=== PATIENT | female | born 1940 | race Caucasian/White ===

== ENCOUNTER 2024-12-30 14:19 | Emergency (ER) | payer MEDICARE, OTHER, SELFPAY ==
--- OUTSIDE RECORDS SUMMARY | 2024-11-08 10:40 | XMS_ITS | Encounter Summary ---
Author Organization [place] [address] Care Team Providers Care Movie Critic Name Role Phone Lilly Zimmerman MD, Harold Primary Care Provider + Encounter Details Date Type Department Care Team (Late st Contact Info) Description 11/08/2024 10:40 AM EDT Office Visit Structural Hrt/Valve [address] [facility] [address] [place] [address] Alexandria Kunz, MADDIE [address] [place] [address] S/P TAVR (transcatheter aortic valve replacement) (Primary Dx); Coronary artery disease of [place] artery of [place] heart with stable angina pectoris; Primary hypertension Social History Tobacco Use Types Packs/Day Years Used Date Smoking Tobacco: Never Smokeless Tobacco: Never Tobacco Cessation:Counseling Given: Not Answered Alcohol Use Standard Drinks/Week Comments Never 0 (1 standard drink = 0.6 oz pur e alcohol) [facility] Utilities Answer Date Recorded In the past 12 months has [employer] electric, gas, oil, or water company threatened to shut off services in your home? No 10/26/2024 Overall Financial Resource Strain (CARDIA) Answe r Date Recorded How hard is it for you to pa y for the very basics like food, housing, medical care, and heating? Not very hard 10/26/2024 PHQ-2 Answer Date Recorded PHQ-2 Total Score 0 10/26/2024 [facility] [place] [facility] - Occupational Stress Questionnaire Answer Date Recorded Do you feel stress - tense, restless, nervous, or anxious, or unable to sleep at night because your mind is troubled all the time - these days? Not at all 10/26/2024 Exercise Vital Sign Answer Date Recorde d On average, how many days pe r week do you engage in moderate to strenuous exercise (like a brisk walk)? 3 days 10/26/2024 On average, how many minutes do you engage in exercise at this level? 10 min 10/26/2024 Hunger Vital Sign Answer Date Recorded Within the past 12 months, y ou worried that your food would run out before you got the money to buy more. Never true 10/27/19 25 Within the past 12 months, t he food you bought just didn't last and you didn't have money to get more. Never true 10/26/2024 [facility] IP Transportation Answer D ate Recorded In the past 12 months, has l ack of reliable transportation kept you from medical appointments, meetings, work or from getting things needed for daily living? No 10/26/2024 Comments No Sex and Gender Information Value Date Recorded Sex Assigned at Not on file Legal Sex Female 5:32 AM EDT Gender Identity Not on file Sexual Orientation Not on file documented as of this encounter Last Filed Vital Signs Vital Sign Reading Time Taken Comments Blood Pressure 168/54 11/08/2024 10:35 AM EDT Pulse 96 11/08/2024 10:35 AM EDT Temperature - - Respiratory Rate - - Oxygen Saturation 95% 11/08/2024 10:35 AM EDT Inhaled Oxygen Concentration - - Weight 84.6 kg (186 lb 6.4 oz) 11/08/2024 10:35 AM EDT Height - - Body Mass Index 30.09 10/26/2024 6:21 AM EDT documented in this encounter Progress Notes * Alexandria Kunz APRN - 11/08/2024 10:40 AM EDT [facility] Heart- TAVR Follow Up Primary Skein Dyer - Dr. Vincent HPI: Mindy Chandler is a 84 y.o. female who presents to [facility] following a Transcatheter Aortic Valve Replacement. She has a past medical history significant for Severe (s/p TAVR), HTN, CAD (s/p PCI). On 10/26/24, she underwent a Transfemoral Transcatheter Aortic Valve Replacement using a 23 mm S3 Valve. The procedure went well with out any apparent complications. Post operative echocardiogram showed a well-seated aortic valve. Today she presents for a 2 week post TAVR evaluation. The patient states she is doing well and has no concerns or complaints at this time. She reports that she is doing well. She is eager to go home,she states that she has been staying with her daughter. She is on aspirin and brilinta due to anaphylactic allergy to plavix. Assessment and Plan: Status-post Transcatheter Aortic Valve Replacement. The patient is doing well and has no concerns at this time. NHYA class II. I have encouraged her to continue aspirin lifelong and plavix for 3 months uninterrupted. Informed patient she will require antibiotics prior to dental work. Follow-up for 30 day post TAVR visit with an echocardiogram. Patient lives about hour [place] a half away and will be unable to make cardiac rehab. HTN - stable - SBP elevated 168/54 HLD - continue atorvastatin - s/p PCI Follow-up in the Valve Clinic for 30 day with repeat Cardiac ECHO. Follow-up appoint with as an outpatient in their office within the next 3-4 months. Thank you for the opportunity to assist in the care of this patient, please feel free to contact meif I can be of any assistance. Alexandria Kunz, MADDIE Structural Heart Vitals: 11/08/24 1035 BP: 175/54 Pulse: 96 SpO2: 95% Current Outpatient Medications on File Prior to Visit Medication Sig Dispense Refill acetaminophen 325 mg Oral Tab Take 2 Tablets by mouth every 4 hours as needed for Pain. amitriptyline (ELAVIL) 100 mg Oral Tablet Take 150 mg by mouth nightly. amLODIPine (NORVASC) 5 mg Oral Tablet Take 1 Tablet by mouth daily. aspirin 81 mg Oral Tablet, Chewable Take 1 tablet every day by oral route as directed. atorvastatin (LIPITOR) 20 mg Oral Tablet Take 1 Tablet by mouth nightly. 90 Tablet 1 Cholecalciferol, Vitamin D3, 50 mcg (2,000 unit) Oral Capsule Take 1 Capsule by mouth daily. doxazosin (CARDURA) 1 mg Oral Tablet Take 1 Tablet by mouth daily. 90 Tablet 2 esomeprazole (NEXIUM) 40 mg Oral Capsule, Delayed Release(E.C.) Take 1 capsule every day by oral route before meals for 90 days. fenofibrate (TRICOR) 48 mg Oral Tablet Take 1 Tablet by mouth daily. 90 Tablet 1 fluticasone propionate (FLONASE) 50 mcg/actuation Nasl [place], Suspension SPRAY 2 SPRAYS ONCE A DAY BY INTRANASAL ROUTE. fUROsemide (LASIX) 20 mg Oral Tablet Take 1 tablet every day by oral route in the morning for 90 days, for swelling. gabapentin (NEURONTIN) 100 mg Oral Capsule Take 2 capsules 3 times a day by oral route for 30 days. hydroCHLOROthiazide (MICROZIDE) 12.5 mg Oral Capsule Take 1 Capsule by mouth daily. lisinopriL (PRINIVIL;ZESTRIL) 20 mg Oral Tablet tablet Take 1 tablet every day by oral route. (Patient not taking: Reported on 10/26/2024) ticagrelor (BRILINTA) 90 mg Oral Tablet Take 1 Tablet by mouth 2 times daily. 60 Tablet 5 VITAMIN D 1,250 mcg (50,000 unit) Oral Capsule Take 50,000 Units by mouth once a week. (Patient nottaking: Reported on 10/26/2024) No current facility-administered medications on file prior to visit. Review of Systems A comprehensive review of systems was negative. Exam: Physical Exam Constitutional: Appearance: Normal appearance. She is obese. HENT: Head: Normocephalic and atraumatic. Cardiovascular: Rate and Rhythm: Normal rate and regular rhythm. Heart sounds: Murmur heard. No friction rub. No gallop. Musculoskeletal: Right lower leg: Edema present. Left lower leg: Edema present. Neurological: Mental Status: She is alert. Psychiatric: Mood and Affect: Mood normal. Access site: CDI, well healed CATH :No results found. ECHO :EC ECHOCARDIOGRAM LIMITED Result Date: 10/27/2024 Conclusions * Left ventricular chamber dimension is decreased. * Left ventricular function is normal with an estimated ejection fraction of 60-65%. * Right atrial chamber dimension is visually normal. * There is moderate mitral valve stenosis with a peak velocity of 214 cm/s and a mean gradient of 7 mmHg. EC ECHOCARDIOGRAM 2D M MODE COMPLETE W CONTRAST Result Date: 10/27/2024 Conclusions * Left ventricular chamber dimension is decreased. * Left ventricular function is hyperdynamic with an estimated ejection fraction of 65- 70%. * There is severely increased left ventricular wall thickness. * Left ventricular segmental wall motion is normal. * The left ventricular diastolic function is consistent with grade II diastolic dysfunction (elevated left atrial pressure). * Right ventricular systolic function is normal. * Estimated pulmonary artery systolic pressure is 47 mmHg. * Left atrial chamber dimension is moderately enlarged. * There is moderate mitral valve stenosis. * There is a 23mm TAVR present in the aortic position. * The mean gradient across the prosthetic aortic valve is 10 mmHg, which is within normal limits. * There is no transvalvular regurgitation of the prosthetic aortic valve. * There is no paravalvular regurgitation of the prosthetic aortic valve. STRESS :No results found. documented in this encounter Plan of Treatment Upcoming Encounters Date Type Department Care Team (Late st Contact Info) Description 03/29/2025 2:30 PM EDT Office Visit [facility] [address] [place] [id number] Priscilla Mejía APRN [address] [place] [address] 11/06/2025 11:45 AM EDT Appointment [facility] [address] [place] [address] [address] [place] [address] Charlotte Patel MD [address] [place] [address] 11/09/2025 11:00 AM EDT Office Visit Structural Hrt/Valve [address] [place] [address] [address] [place] [address] documented as of this encounter Goals Goal Patient Goal Type Associated Problems Recent Progress Patient-Stated? Author Blood Pressure < 140/90 Blood Pressure 153/48(2024 8:40 AM EDT) No Suma Justice MA Maintain a healthy diet, exercise regularly and maintain an ideal body weight General No Ghazal Lu RMA documented as of this encounter Visit Diagnoses Diagnosis S/P TAVR (transcatheter aortic valve replacement)- Primary Coronary artery disease of [place] artery of [place] heart with stable angina pectoris Primary hypertension Unspecified essential hypertension documented in this encounter Care Teams Movie Critic Relationship Specialty Start Date End Date Rakesh Carr MD [address] [place] [address] PCP - General Family Medicine 03/16/12 documented as of this encounter
--- OUTSIDE RECORDS SUMMARY | 2024-11-30 14:32 | XMS_ITS | Encounter Summary ---
Author Organization [place] [address] Care Team Providers Care Banquet Cook Name Role Phone Lilly Zimmerman MD, Harold Primary Care Provider + Reason for Visit * Echo (Routine) - Pending Review Specialty Diagnoses / Procedures Referred By Harvinder chavis Referred To Contact Radiology Diagnoses Severe aortic stenosis S/P TAVR (transcatheter aortic valve replacement) Procedures EC ECHOCARDIOGRAM COMPLETE W DOPPLER AND COLOR FLOW MAPPING EC ECHOCARDIOGRAM 2D M MODE COMPLETE W CONTRAST Lillian De Leon, MADDIE [address] [place] [address] Phone: tel: fax: Referral ID Status Reason Start Date Expiration Date V isits Requested Visits Authorized [id number] Pending Review 10/27/2024 10/27/2026 1 1 Encounter Details Date Type Department Care Team (Latest Contact Info) Description 11/30/2024 2:32 PM EDT - 11/30/2024 11:59 PM EDT Hospital Encounter [facility] [address] [facility] [address] [place] [address] Severe aortic stenosis; S/P TAVR (transcatheter aortic valve replacement) Discharge Disposition: Home or Self Care Social History Tobacco Use Types Packs/Day Years Used Date Smoking Tobacco: Never Smokeless Tobacco: Never Alcohol Use Standard Drinks/Week Comments Never 0 (1 standard drink = 0.6 oz pur e alcohol) [facility] Utilities Answer Date Recorded In the past 12 months has th e electric, gas, oil, or water company threatened to shut off services in your home? No 10/26/2024 Overall Financial Resource Strain (CARDIA) Answe r Date Recorded How hard is it for you to pa y for the very basics like food, housing, medical care, and heating? Not very hard 10/26/2024 PHQ-2 Answer Date Recorded PHQ-2 Total Score 0 10/26/2024 [facility] - Occupational Stress Questionnaire Answer Date Recorded [...] money to get more. Never true 10/26/2024 [facility] IP Transportation Answer D ate Recorded In [...] on file documented as of this encounter Medications at Time of Discharge acetaminophen 325 mg Oral Tab Take 2 Tablets by mouth every 4 hours as needed for Pain. 09/02/2024 amitriptyline (ELAVIL) 100 mg Oral Tablet Take 150 mg by mouth nightly. amLODIPine (NORVASC) 5 mg Oral Tablet Take 1 Tablet by mouth daily. aspirin 81 mg Oral Tablet, Chewable Take 1 tablet every day by oral route as directed. atorvastatin (LIPITOR) 20 mg Oral Tablet Take 1 Tablet by mouth nightly. 90 Tablet 1 10/05/2024 Cholecalciferol, Vitamin D3, 50 mcg (2,000 unit) Oral Capsule Take 1 Capsule by mouth daily. 05/29/2024 doxazosin (CARDURA) 1 mg Oral TabletIndications: Primary hypertension Take 1 Tablet by mouth daily. 90 Tablet 2 06/01/2024 esomeprazole (NEXIUM) 40 mg Oral Capsule, Delayed Release(E.C.) Take 1 capsule every day by oral route before meals for 90 days. fenofibrate (TRICOR) 48 mg Oral Tablet Take 1 Tablet by mouth daily. 90 Tablet 1 10/05/2024 fluticasone propionate (FLONASE) 50 mcg/actuation Nasl [place], Suspension SPRAY 2 SPRAYS ONCE A DAY BY INTRANASAL ROUTE. fUROsemide (LASIX) 20 mg Oral Tablet Take 1 tablet every day by oral route in the morning for 90 days, for swelling. gabapentin (NEURONTIN) 100 mg Oral Capsule Take 2 capsules 3 times a day by oral route for 30 days. 05/23/2024 hydroCHLOROthiazid e (MICROZIDE) 12.5 mg Oral Capsule Take 1 Capsule by mouth daily. lisinopriL (PRINIVIL;ZESTRIL) 20 mg Oral Tablet tablet Take 1 tablet every day by oral route. ticagrelor (BRILINTA) 90 mg Oral TabletIndications: Nonrheumatic aortic valve stenosis TAKE 1 TABLET BY MOUTH 2 TIMES DAILY. 60 Tablet 2 11/15/2024 VITAMIN D 1,250 mcg (50,000 unit) Oral Capsule Take 50,000 Units by mouth once a week. 09/20/2024 documented as of this encounter Discharge Disposition Disposition Code Departure Means Destination Home or Self Care documented in this encounter Plan of Treatment Upcoming Encounters Date Type Department Care Team (Late st Contact Info) Description 03/29/2025 2:30 PM EDT Office Visit [facility] [address] [place] [address] Priscilla Mejía APRN [address] [place] [address] 11/06/2025 11:45 AM EDT Appointment [facility] [address] [facility] [address] [place] [address] Charlotte Patel MD [address] [place] [address] [place] [id number] 11/09/2025 11:00 AM EDT Office Visit Structural Hrt/Valve [address] [place] [address] Drive [address] [place] [address] documented as of this encounter Goals Goal Patient Goal Type Associated Problems Recent Progress Patient-Stated? Author Blood Pressure < 140/90 Blood Pressure 153/48(2024 8:40 AM EDT) Suma Hollis MA Maintain a healthy diet, exercise regularly and maintain an ideal body weight General No Ghazal Lu RMA documented as of this encounter Procedures Procedure Name Priority Date/Time Associated Diagnosis Comments EC ECHOCARDIOGRAM COMPLETE W DOPPLER AND COLOR FLOW MAPPING Routine 11/30/2024 3:51 PM EDT Severe aortic stenosis S/P TAVR (transcatheter aortic valve replacement) documented in this encounter Results * EC ECHOCARDIOGRAM COMPLETE W DOPPLER AND COLOR FLOW MAPPING (11/30/2024 3:51 PM EDT) Ejection Fraction 65-70% PYRAMIS MITRAL REGURGITATION trace PYRAMIS AORTIC STENOSIS no PYRAMIS LV DIASTOLIC PLAX 4.48 cm PYRAMIS Anatomical Region Laterality Modality Electrocardiogra phy 11/30/2024 3:13 PM EDT Impressions 12/04/2024 1:55 PM EDT Conclusions * Left ventricular chamber dimension is normal. * There is severely increased left ventricular wall thickness. * Left ventricular function is hyperdynamic with an estimated ejection fraction of 65-70%. * The left ventricular diastolic function is consistent with grade II diastolic dysfunction (elevated left atrial pressure). * Right ventricular systolic function is normal. * Unable to estimate pulmonary arterial systolic pressure due to lack of tricuspid regurgitation jet. * Left atrial chamber dimension is moderately enlarged. * There is moderate mitral valve stenosis with a peak velocity of 216 cm/s and a mean gradient of 9 mmHg. * There is a 23mm TAVR present in the aortic position. * The mean gradient across the prosthetic aortic valve is 16 mmHg, which is within normal limits. * There is no transvalvular regurgitation of the prosthetic aortic valve. * There is no paravalvular regurgitation of the prosthetic aortic valve. * Increased Doppler flow velocities noted in the left ventricle consistent with a mid ventricular obstruction. * At rest, the max velocity is 3.2 m/s with a peak gradient of 42 mmHg. With valsalva maneuver, the max velocity increases to 4.9 m/s with a peak gradient of 97 mmHg. Narrative Procedure Note Mingo Joseph MD - 12/04/2024 IMPRESSION Conclusions * Left ventricular chamber dimension is normal. * There is severely increased left ventricular wall thickness. * Left ventricular function is hyperdynamic with an estimated ejection fraction of 65-70%. * The left ventricular diastolic function is consistent with grade II diastolic dysfunction (elevated left atrial pressure). * Right ventricular systolic function is normal. * Unable to estimate pulmonary arterial systolic pressure due to lackof tricuspid regurgitation jet. * Left atrial chamber dimension is moderately enlarged. * There is moderate mitral valve stenosis with a peak velocity of 216cm/s and a mean gradient of 9 mmHg. * There is a 23mm TAVR present in the aortic position. * The mean gradient across the prosthetic aortic valve is 16 mmHg, whichis within normal limits. * There is no transvalvular regurgitation of the prosthetic aorticvalve. * There is no paravalvular regurgitation of the prosthetic aorticvalve. * Increased Doppler flow velocities noted in the left ventricleconsistent with a mid ventricular obstruction. * At rest, the max velocity is 3.2 m/s with a peak gradient of 42 mmHg.With valsalva maneuver, the max velocity increases to 4.9 m/s with a peakgradient of 97 mmHg. Lillian De Leon APRN IMG ECHO ORDERABLES Final R esult documented in this encounter Visit Diagnoses Diagnosis Severe aortic stenosis Aortic valve disorders S/P TAVR (transcatheter aortic valve replacement) documented in this encounter Care Teams Banquet Cook Relationship Specialty Start Date End Date Rakesh Carr MD [address] [place] [id number] PCP - General Family Medicine 03/16/12 documented as of this encounter
--- OUTSIDE RECORDS SUMMARY | 2024-12-04 08:40 | XMS_ITS | Encounter Summary ---
Author Organization [place] [address] Care Team Providers Care Distribution Lead Name Role Phone Lilly Zimmerman MD, Rakesh Primary Care Provider + Reason for Referral * Echo (Routine) - Pending Review Specialty Diagnoses / Procedures Referred By Contac t Referred To Contact Radiology Diagnoses S/P TAVR (transcatheter aortic valve replacement) Severe aortic stenosis Procedures EC ECHOCARDIOGRAM 2D M MODE COMPLETE W CONTRAST Charlotte Patel MD [address] [facility] [place] [address] Phone: tel: fax: Referral ID Status Reason Start Date Expiration Date V isits Requested Visits Authorized [id number] Pending Review 12/04/2024 12/04/2026 1 1 Encounter Details Date Type Department Care Team (Latest Contact Info) Description 12/04/2024 8:40 AM EDT Office Visit Structural Hrt/Valve [address] [facility] [address] [place] [address] Lillian De Leon, MADDIE [address] [facility] [place] [address] Severe aortic stenosis (Primary Dx); S/P TAVR (transcatheter aortic valve replacement); Primary hypertension; Pure hypercholesterolemia Social History Tobacco Use Types Packs/Day Years Used Date Smoking Tobacco: Never Smokeless Tobacco: Never Tobacco Cessation:Counseling Given: Not Answered Alcohol Use Standard Drinks/Week Comments Never 0 (1 standard drink = 0.6 oz pur e alcohol) [facility] Utilities Answer Date Recorded In the [...] Date Recorded PHQ-2 Total Score 0 10/26/2024 [facility] - Occupational Stress [...] money to get more. Never true 10/26/2024 [facility] IP Transportation Answer D ate Recorded In [...] Sign Reading Time Taken Comments Blood Pressure 153/48 12/04/2024 8:40 AM EDT Pulse 94 12/04/2024 8:40 AM EDT Temperature - - Respiratory Rate - - Oxygen Saturation 98% 12/04/2024 8:40 AM EDT Inhaled Oxygen Concentration - - Weight 82.9 kg (182 lb 12.8 oz) 12/04/2024 8:40 AM EDT Height - - Body Mass Index 29.5 10/26/2024 6:21 AM EDT documented in this encounter Progress Notes * Lillian De Leon, CLINICAL RN MANAGER - 12/04/2024 8:[address] [facility] Structural Heart- TAVR Follow Up Primary Yield Engineer - Dr. Vincent HPI: Mindy Chandler is a 84 y.o. female who presents to [facility] following a Transcatheter Aortic Valve Replacement. She has a past medical history significant for HTN, CAD, s/p PCI, , s/p TAVR, HLD. On 10/26/24, she underwent a Transfemoral Transcatheter Aortic Valve Replacement using a 23 mm S3 Valve. The procedure went well with out any apparent complications. Post operative echocardiogram showed a well-seated aortic valve. Today she presents for a 1 month post TAVR evaluation. The patient states she is doing good following the TAVR procedure. She notes significant improvement in SOB and fatigue following the procedure.She denies shortness of breath, orthopnea, and PND, palpations and chest pain. Her weight is stable. Vital signs are stable. 1 month TAVR ECHO Left ventricular chamber dimension is normal. Left ventricular function is hyperdynamic with an estimated ejection fraction of 65-70%. There is severely increased left ventricular wall thickness. Left ventricular segmental wall motion is normal. The left ventricular diastolic function is consistent with grade II diastolic dysfunction (elevatedleft atrial pressure). There is a 23mm TAVR present in the aortic position. The valve is well seated. The leaflets are not well visualized. The mean gradient across the prosthetic aortic valve is 16 mmHg, which is within normal limits. The prosthetic aortic valve acceleration time is 74 ms. The prosthetic aortic valve DVI is 0.63. There is no transvalvular regurgitation of the prosthetic aortic valve. There is no paravalvular regurgitation of the prosthetic aortic valve. The prosthetic aortic valve was implanted on 10/26/2024. Increased Doppler flow velocities noted in the left ventricle consistent with a mid ventricular obstruction. At rest, the max velocity is 3.2 m/s with a peak gradient of 42 mmHg. With valsalva maneuver, the max velocity increases to 4.9 m/s with a peak gradient of 97 mmHg. Vitals: 12/04/24 0840 BP: 153/48 Pulse: 94 SpO2: 98% Current Outpatient Medications on File Prior to [...] 1 fluticasone propionate (FLONASE) 50 mcg/actuation [place], Suspension SPRAY 2 SPRAYS ONCE A DAY BY INTRANASAL ROUTE. fUROsemide (LASIX) 20 mg Oral Tablet Take 1 tablet every day by oral route in the morning for 90 days, for swelling. gabapentin (NEURONTIN) 100 mg Oral Capsule Take 2 capsules 3 times a day by oral route for 30 days. hydroCHLOROthiazide (MICROZIDE) 12.5 mg Oral Capsule Take 1 Capsule by mouth daily. ticagrelor (BRILINTA) 90 mg Oral Tablet TAKE 1 TABLET BY MOUTH 2 TIMES DAILY. 60 Tablet 2 lisinopriL (PRINIVIL;ZESTRIL) 20 mg Oral Tablet tablet Take 1 tablet every day by oral route. (Patient not taking: Reported on 12/04/2024) VITAMIN D 1,250 mcg (50,000 unit) Oral Capsule Take 50,000 Units by mouth once a week. (Patient nottaking: Reported on 12/04/2024) No current facility-administered medications on file prior to visit. Review of Systems Review of Systems Constitutional: Negative for chills, diaphoresis, fever, malaise/fatigue and weight loss. Respiratory: Negative for cough, hemoptysis, sputum production, shortness of breath and wheezing. Cardiovascular: Negative for chest pain, palpitations, orthopnea, claudication, leg swelling and PND. Neurological: Negative for dizziness, loss of consciousness and weakness. All other systems reviewed and are negative. Exam: Physical Exam Vitals reviewed. Constitutional: General: She is not in acute distress. Appearance: Normal appearance. Cardiovascular: Rate and Rhythm: Normal rate and regular rhythm. Pulses: Normal pulses. Heart sounds: Murmur heard. Pulmonary: Effort: Pulmonary effort is normal. Breath sounds: Normal breath sounds. Abdominal: General: Bowel sounds are normal. Palpations: Abdomen is soft. Musculoskeletal: Right lower leg: Edema present. Left lower leg: Edema present. Skin: General: Skin is warm. Capillary Refill: Capillary refill takes less than 2 seconds. Neurological: Mental Status: She is alert and oriented to person, place, and time. Assessment and Plan: Severe Aortic Stenosis - S/p TAVR - NYHA II - Continue ASA and Brilinta - Cardiac rehab ordered - Echo in 1 year - Follow up in 1 year - Reviewed recent labs HTN - Stable - Continue amlodipine, doxazosin, Lasix, HCTZ - Monitor BP at home and keep log - Low Na diet HLD - Stable - Reviewed labs - Continue atorvastatin, fenofibrate Thank you for the opportunity to assist in the care of this patient, please feel free to contact meif I can be of any assistance. Lillian De Leon APRN [facility] CATH :No results found. ECHO :EC ECHOCARDIOGRAM [...] limits. * There is no transvalvular regurgitation ofthe prosthetic aortic valve. * There is no paravalvular regurgitation of the prosthetic aortic valve. STRESS :No results found. NUCMED :No results found. documented in this encounter Plan of Treatment Upcoming Encounters Date Type Department Care Team (Late st Contact Info) Description 03/29/2025 2:30 PM EDT Office Visit [facility] [address] [place] [address] Priscilla Mejía APRN [address] [place] [address] 11/06/2025 11:45 AM EDT Appointment [facility] [address] [place] [address] [address] [place] [address] Charlotte Patel MD [address] [place] [id number] 11/09/2025 11:00 AM EDT Office Visit Structural Hrt/Valve [address] [place] [address] [address] [place] [address] Scheduled Orders Name Type Priority Associated Diagnoses Order Schedule EC ECHOCARDIOGRAM 2D M MODE COMPLETE W CONTRAST Imaging Cardiology Routine S/P TAVR (transcatheter aortic valve replacement) Severe aortic stenosis 1 Occurrences starting 12/04/2024 until 12/04/2026 documented as of this encounter Goals Goal Patient Goal Type Associated Problems Recent Progress Patient-Stated? Author Blood Pressure < 140/90 Blood Pressure 153/48(2024 8:40 AM EDT) Suma Hollis MA Maintain a healthy diet, exercise regularly and maintain an ideal body weight General No Ghazal Lu RMA documented as of this encounter Visit Diagnoses Diagnosis Severe aortic stenosis- Primary Aortic valve disorders S/P TAVR (transcatheter aortic valve replacement) Primary hypertension Unspecified essential hypertension Pure hypercholesterolemia documented in this encounter Care Teams Distribution Lead Relationship Specialty Start Date End Date Rakesh Carr MD [address] [place] [id number] PCP - General Family Medicine 03/16/12 documented as of this encounter
[2024-12-30 14:12] VITALS: BP 175/58; PULSE 85; RESP 18; TEMP 36.8; O2SAT 95; BMI 32.3
--- NOTE | 2024-12-30 14:20 | PC.NURSE ---
1410 PT PLACED IN C-COLLAR
--- NOTE | 2024-12-30 14:22 | CT_ITS ---
PROCEDURE INFORMATION: Exam: CT Cervical Spine Without Contrast Exam date and time: 12/30/2024 2:39 PM Age: 84 years old Clinical indication: Injury or trauma; Fall; Blunt trauma; Additional info: *fall TECHNIQUE: Imaging protocol: Computed tomography of the cervical spine without contrast. Radiation optimization: All CT scans at this facility use at least one of these dose optimization techniques: automated exposure control; mA and/or kV adjustment per patient size (includes targeted exams where dose is matched to clinical indication); or iterative reconstruction. COMPARISON: CT HEAD/BRAIN WO CON 12/30/2024 2:37 PM FINDINGS: Bones: The spine demonstrates moderate degenerative changes at multiple levels. A left convex spinal curvature is observed. There is no evidence of an acute fracture. Lungs: The visualized portions of the lung apices are normal. Vasculature: The vasculature demonstrates diffuse moderate atherosclerotic calcification. Soft tissues: Unremarkable. IMPRESSION: There is no evidence of an acute fracture.
--- NOTE | 2024-12-30 14:22 | CT_ITS ---
PROCEDURE INFORMATION: Exam: CT Head Without Contrast Exam date and time: 12/30/2024 2:37 PM Age: 84 years old Clinical indication: Injury or trauma; Additional info: Fall, head trauma TECHNIQUE: Imaging protocol: Computed tomography of the head without contrast. Radiation optimization: All CT scans at this facility use at least one of these dose optimization techniques: automated exposure control; mA and/or kV adjustment per patient size (includes targeted exams where dose is matched to clinical indication); or iterative reconstruction. COMPARISON: CT HEAD/BRAIN WO CON 12/30/2024 2:37 PM FINDINGS: Brain: There is subarachnoid blood involving the cortical surface of the left parietal lobe on axial image 53 and sagittal image 65. There is also right parietal subarachnoid blood on axial image 60 and sagittal image 37. No extra-axial collection is identified. There is moderate diffuse cerebral atrophy present. Cerebral ventricles: No ventriculomegaly. Pituitary gland and sella: There is a normal empty pituitary sella. Paranasal sinuses: Visualized sinuses are unremarkable. No fluid levels. Mastoid air cells: Visualized mastoid air cells are well aerated. Bones: Benign hyperostosis frontalis is present. Soft tissues: There is a 6 cm broad left parietal scalp hematoma on axial image 60, coronal image 70 and sagittal image 74. There is no evidence of a radio-opaque foreign body. IMPRESSION: 1. There is a 6 cm broad left parietal scalp hematoma on axial image 60, coronal image 70 and sagittal image 74. There is no evidence of a radio-opaque foreign body. 2. There is subarachnoid blood involving the cortical surface of the left parietal lobe on axial image 53 and sagittal image 65. There is also right parietal subarachnoid blood on axial image 60 and sagittal image 37. 3. No extra-axial collection is identified.
--- NOTE | 2024-12-30 14:23 | XR_ITS ---
PROCEDURE INFORMATION: Exam: XR Pelvis Exam date and time: 12/30/2024 2:41 PM Age: 84 years old Clinical indication: Injury or trauma; Fall; Blunt trauma (contusions or hematomas); Left; Hip; Additional info: Fall, left hip pain TECHNIQUE: Imaging protocol: Radiologic exam of the pelvis. Views: 1 or 2 view. COMPARISON: CR PEL1V XR pelvis 1-2V 06/09/2018 7:38 PM FINDINGS: Bones/joints: Acute, displaced left femoral neck fracture. Degenerative changes of the visualized lower lumbar spine, disc space narrowing and facet arthropathy. No dislocation. Mild degenerative changes of the hips, with mild joint space narrowing and minimal osteophyte formation. Soft tissues: Unremarkable. IMPRESSION: Acute, displaced left femoral neck fracture.
--- NOTE | 2024-12-30 14:23 | XR_ITS ---
PROCEDURE INFORMATION: Exam: XR Chest Exam date and time: 12/30/2024 2:41 PM Age: 84 years old Clinical indication: Injury or trauma; Fall; Blunt trauma (contusions or hematomas) TECHNIQUE: Imaging protocol: Radiologic exam of the chest. Views: 1 view. COMPARISON: CR [id number] XR chest portable 06/09/2018 7:46 PM FINDINGS: Lungs: Minimal left basilar opacity, likely atelectasis and small left pleural effusion. Probable calcified granulomas in the right midlung zone. Minimal bilateral lower lobe bronchiolectasis. No focal consolidation. Pleural spaces: See Lungs finding. Heart/Mediastinum: Changes of prior TAVR. Vasculature: Atherosclerotic vascular disease. Bones/joints: Multilevel thoracic spine degenerative disc space narrowing osteophyte formation. IMPRESSION: Minimal left basilar opacity, likely atelectasis and small left pleural effusion.
--- NOTE | 2024-12-30 14:24 | XR_ITS ---
PROCEDURE INFORMATION: Exam: XR Left Femur Exam date and time: 12/30/2024 2:41 PM Age: 84 years old Clinical indication: Injury or trauma; Fall; Blunt trauma; Hip; Left; Additional info: Fall, left hip/leg pain TECHNIQUE: Imaging protocol: Radiologic exam of the left femur. Views: 2 views. COMPARISON: CR XR FEMUR LT 2V 12/30/2024 2:41 PM FINDINGS: Bones/joints: Acute, displaced left femoral neck fracture. Mild degenerative changes of the left hip, with moderate disc space narrowing and minimal osteophyte formation. No dislocation. Soft tissues: Unremarkable. IMPRESSION: Acute, displaced left femoral neck fracture.
--- NOTE | 2024-12-30 14:26 | ECG_ITS ---
APPROVED REPORT Exam: Resting ECG HR:83 bpm ECG Measurements Heart Rate 83 AXES SD 201 P 57 QRSd 112 QRS 32 QT 403 T 82 QTc 443 Conclusion SINUS RHYTHM MODERATE INTRAVENTRICULAR CONDUCTION DELAY [110+ ms QRS DURATION] BORDERLINE ECG UNCONFIRMED REPORT Electronically signed by : ED RODRIGUEZ, 12/31/2024 06:32:21
--- NOTE | 2024-12-30 14:28 | XR_ITS ---
PROCEDURE INFORMATION: Exam: XR Left Humerus Exam date and time: 12/30/2024 2:41 PM Age: 84 years old Clinical indication: Injury or trauma; Fall; Blunt trauma (contusions or hematomas); Arm, upper; Left; Additional info: Fall/trauma TECHNIQUE: Imaging protocol: Radiologic exam of the left humerus. Views: 2 or more views. COMPARISON: CT CERVICAL SPINE WO CON 12/30/2024 2:39 PM FINDINGS: Bones/joints: Degenerative changes of the left acromioclavicular joint, with mild joint space narrowing. No acute fracture or dislocation. Soft tissues: Normal. IMPRESSION: No acute fracture or dislocation.
--- NOTE | 2024-12-30 14:28 | XR_ITS ---
PROCEDURE INFORMATION: Exam: XR Left Elbow Exam date and time: 12/30/2024 2:41 PM Age: 84 years old Clinical indication: Injury or trauma; Fall; Blunt trauma (contusions or hematomas); Elbow; Left; Additional info: /trauma TECHNIQUE: Imaging protocol: Radiologic exam of the left elbow. Views: 1 or 2 views. COMPARISON: CR XR ELBOW LT 2V 12/30/2024 2:41 PM FINDINGS: Bones/joints: Normal. Soft tissues: Normal. IMPRESSION: No acute findings.
[2024-12-30 14:29] LABS: Hematocrit 32.8 % (37.0-47.0); Hemoglobin 11.5 g/dL (12.2-16.2); Immature Granulocytes % 0.5 %; Mean Corpuscular HGB Conc 35.1 g/dL (31.8-35.4); Mean Corpuscular Hemoglobin 30.6 pg (27.0-31.2); Mean Corpuscular Volume 87.2 fl (81-99); Nucleated Red Blood Cells % 0 %; Platelet Count 201 K/mm3 (142-424); Red Blood Count 3.76 M/mm3 (4.20-5.40); Red Cell Distribution Width-SD 44.0 fL; White Blood Count 6.5 K/mm3 (4.8-10.8)
--- NOTE | 2024-12-30 14:29 | ED_ITS ---
<Statement entered by Rita Gaitan DO - 12/30/24 18:42> I was consulted by the KHADIJAH, and we discussed the complexity of problems being addressed. I approve the treatment and management plan for this patient's care in the emergency department, thus performing a substantial portion of the medical decision making. Rita Gaitan DO Discharge Plan Disposition Patient Disposition: Xfer Short-Term Hosp Condition: Fair Prescriptions Prescriptions: No Action atorvastatin 20 mg tablet 20 mg PO DAILY lisinopril 20 mg tablet 20 mg PO DAILY esomeprazole magnesium 40 mg capsule,delayed release(DR/EC) 40 mg PO DAILY furosemide 20 mg tablet 20 mg PO DAILY gabapentin 100 mg capsule 100 mg PO DAILY ergocalciferol (vitamin D2) [Vitamin D2] 1,250 mcg (50,000 unit) capsule 1,250 mcg PO DAILY fluticasone propionate 50 mcg/actuation spray,suspension 1 spray INTRANASAL DAILY fenofibrate nanocrystallized 48 mg tablet 48 mg PO DAILY ticagrelor 90 mg tablet 90 mg PO DAILY doxazosin [Cardura] 1 mg Tablet 1 mg PO DAILY amlodipine 5 mg Tablet 5 mg PO DAILY aspirin [Aspir-81] 81 mg Tablet,Delayed Release (Dr/Ec) 81 mg PO DAILY amitriptyline [Elavil] 100 mg Tablet 100 mg PO HS hydrochlorothiazide 12.5 mg Tablet 12.5 mg PO DAILY cholecalciferol (vitamin D3) [Vitamin D3] 50 mcg (2,000 unit) Tablet 50 mcg PO DAILY Referrals Follow up/Referrals: Provider,Referral, MD [Primary Care Provider, Medical] - See instructions Clinical Impressions Clinical Impression: Trauma, Subarachnoid hemorrhage, Femur fracture, left Stand Alone Forms Stand Alone Forms: Transfer Record - ED Print Language Print Language: Bengali Discharge ED Provider: Roshan Pina General Adult HPI <PABLO Ray - Last Filed: 12/30/24 15:52> General Chief complaint: Fall Stated complaint: Fall Time Seen by Provider: 12/30/24 14:22 Mode of Arrival: EMS Source of Information: Patient and Relative Limitations: No Limitations History of Present Illness HPI narrative: 84-year-old female presents the emergency department via EMS for a what sounds like mechanical fall, at the [facility] , patient was ambulating, unassisted, ambulates unassisted at baseline when she tripped and fell , off the curb approximately 2 to 3 feet, does admit to striking the head, denies any LOC, unsure of anticoagulation status, was formally on anticoagulants, unsure if currently, both patient and patient's relative at the bedside are poor historians, patient has any presyncopal or syncopal episode, admits to headache, noted abrasion/laceration on the occipital region of the patient's scalp, as well as left elbow abrasion, complaining of primarily left hip/leg pain, with some concern for shortening and internal rotation per EMS, patient was given 50 mcg of IV fentanyl prior to arrival, patient denies any fever chills chest pain shortness of breath no nausea no vomiting, no lightheadedness currently, complains of a mild headache, denies any neck pain, he is in cervical collar, denies any other midthoracic back pain or lower back pain, denies any upper or lower extremity weakness with the exception of pain limited range of motion on her left lower extremity, denies any urinary symptomatology, patient has any tobacco history/use, denies any drug use or alcohol use, patient tells me she has past medical history consistent with hypertension, but is unsure of what other medication she takes at home. 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 Onset (ago): hour(s) Related Data Home Medications ?Medication ?Instructions ?Recorded ?Confirmed amitriptyline 100 mg tablet 100 mg PO HS 12/30/2412/12 amlodipine 5 mg tablet 5 mg PO DAILY 12/30/2412/30 aspirin 81 mg tablet,delayed 81 mg PO DAILY 12/30/24 0 12/30/24 release atorvastatin 20 mg tablet 20 mg PO DAILY 12/30/2412/12 cholecalciferol (vitamin D3) 50 50 mcg PO DAILY 12/30/24 mcg (2,000 unit) tablet (Vitamin D3) doxazosin 1 mg tablet (Cardura) 1 mg PO DAILY 12/30/24 12/30/24 ergocalciferol (vitamin D2) 1,250 1,250 mcg PO DAILY 0 12/30/24 12/30/24 mcg (50,000 unit) capsule (Vitamin D2) esomeprazole magnesium 40 mg 40 mg PO DAILY 12/30/24 0 12/30/24 capsule,delayed release fenofibrate nanocrystallized 48 mg 48 mg PO DAILY 12/1212/30/24 tablet fluticasone propionate 50 1 spray intranasal DAILY 12/30/24 mcg/actuation nasal spray,suspension furosemide 20 mg tablet 20 mg PO DAILY 12/30/2412/12 gabapentin 100 mg capsule 100 mg PO DAILY 12/30/24 hydrochlorothiazide 12.5 mg tablet 12.5 mg PO DAILY 12/30/24 lisinopril 20 mg tablet 20 mg PO DAILY 12/30/2412/12 ticagrelor 90 mg tablet 90 mg PO DAILY 12/30/2412/12 Allergies Allergy/AdvReac Type Severity Reaction Status Date / Time clopidogrel Allergy Other Verified 12/30/24 14:57 PENICILLIN Allergy Unknown NUMBNESS Uncoded 06/01/17 14:35 [facility] <PABLO Ray - Last Filed: 12/30/24 15:52> [facility] Disclaimer: The information contained in this section may have been updated after the patient was seen, as this information can be updated by other users. Social History (Updated 12/30/24 @ 15:52 by PABLO Ray) Smoking Status: Never smoker alcohol intake: never current occupational status: other Travel in the last 8 weeks?: None Have you lived/traveled outside US in past 30 days?: No Contact w/someone who lives/traveled outside US past 30 days?: No Exposure to someone with infectious disease in past 14 days?: No Do you have a fever (greater than 100.4 F or 38 C)?: No Have you tested positive for COVID-19?: No Exposed to someone with COVID-19 in past 14 days?: No Do you have a sore throat?: No Do you have a cough?: No Do you have any weakness?: No Do you have any diarrhea?: No Are you experiencing any unusual bleeding?: No Do you have any muscle aches/pain?: No Do you have any abdominal pain?: No Are you experiencing loss of taste or smell?: No <PABLO Ray - Last Filed: 12/30/24 15:52> ROS Obtained: Yes All systems reviewed & no additional complaints except as documented Physical Exam <PABLO Ray - Last Filed: 12/30/24 15:52> General General appearance: alert and in no apparent distress Head Head exam: atraumatic and normocephalic Eye Eye exam: Present PERRL and EOMI ENT ENT exam: Present mucous membranes moist Neck Neck exam: Present normal inspection Chest Chest inspection: Present normal inspection and symmetric chest wall rise Respiratory Respiratory exam: Present normal lung sounds bilaterally; Absent respiratory distress Cardiovascular Cardiovascular exam: Present regular rate and normal rhythm Abdominal Exam Abdominal exam: Present soft; Absent tenderness, guarding, rebound or rigidity Extremities Exam Extremities exam: Present tenderness and other (Some limb shortening on the left, with internal rotation on the left, pain palpation to the trochanteric region and proximal femur region to palpation, otherwise neurovascular intact, mild pain with patient to the left elbow region, otherwise no other pain palpation noted) Expanded Lower Extremity Exam Left: Hip/Pelvis exam: Present internal rotation, pain on hip/pelvis palpation and other (Pelvis is otherwise stable to AP and lateral compression) Neurological Exam Neurological exam: Present alert, oriented X3 and other (GCS 15, oriented to person and place, moves extremities to command, with the exception of the left lower extremity which I do think is pain limiting in nature, no sensation deficit) Psychiatric Psychiatric exam: Present normal affect Skin Skin exam: Present warm, dry and other (Abrasion/laceration to the left elbow region and posterior tibial region, hemostasis achieved at this time,) Medical Decision Making <PABLO Ray - Last Filed: 12/30/24 15:52> Medical Records Medical records reviewed: Yes I reviewed the patient's medical records. Screening: Per USPSTF and CDC recommendations, given the prevalence of disease in our region, it is our hospital?s policy to screen for HIV and viral Hepatitis for all patients aged 18 and over and those with ongoing risk factors. Ash Inquiry Pt receiving controlled substance: No Ash was queried for this patient: No Vital Signs: 12/30/24 14:12 12/30/24 15:00 12/30/24 15:30 Temperature 98.2 F Temperature Source Oral Pulse Rate 87 91 H Pulse Rate [Apical] 85 Respiratory Rate 18 19 26 H Blood Pressure 188/63 H 212/69 H Blood Pressure [Right Arm] 175/58 H Blood Pressure Mean [Right Arm] 97 Blood Pressure Source Blood Pressure Source [Right Arm] Automatic Cuff Blood Pressure Position Blood Pressure Position [Right Arm] Sitting 02 Sat by Pulse Oximetry 95 91 L 95 Oxygen Delivery Method Room Air Room Air 12/30/24 15:38 12/30/24 15:45 Temperature 98.2 F Temperature Source Oral Pulse Rate 95 H 90 Pulse Rate [Apical] Respiratory Rate 25 H 18 Blood Pressure 182/66 H 182/66 H Blood Pressure [Right Arm] Blood Pressure Mean [Right Arm] Blood Pressure Source Automatic Cuff Blood Pressure Source [Right Arm] Blood Pressure Position Sitting Blood Pressure Position [Right Arm] 02 Sat by Pulse Oximetry 94 L Oxygen Delivery Method Room Air Room Air Lab Data Lab results reviewed: Yes I reviewed the patient's lab results. Lab Results 12/30/24 14:20: WBC 6.5, RBC 3.76 L, Hgb 11.5 L, Hct 32.8 L, MCV 87.2, MCH 30.6, MCHC 35.1, RDW 13.8, Plt Count 201, MPV 9.8, Neut % (Auto) 67.9, Lymph % (Auto) 25.0, [place] % (Auto) 5.4, Eos % (Auto) 0.9, Baso % (Auto) 0.3, Neut # (Auto) 4.4, Lymph # (Auto) 1.6, [place] # (Auto) 0.4, Eos # (Auto) 0.1, Baso # (Auto) 0.0, Sodium 140, Potassium 3.6, Chloride 106, Carbon Dioxide 28, Anion Gap 9.6, BUN 19 H, Creatinine 0.80, Estimated Creat Clear 60, Estimated GFR 69, Est GFR ( Amer) 83, Glucose 103 H, Calcium 8.9, Total Bilirubin 0.6, AST 59 H, ALT 32, Alkaline Phosphatase 89, Total Protein 6.3, Albumin 3.9, Globulin 2.4, Albumin/Globulin Ratio 1.6, HCV Ab TIFFANI w/Rflx PCR Qn Negative, HIV Ag/Ab Combo Qual Negative 12/30/24 15:37: Urine Color Yellow, Urine Appearance Clear, Urine pH 5.5, Ur Specific [place] 1.020, Urine Protein Negative, Urine Glucose (UA) Negative, Urine Ketones Negative, Urine Blood Negative, Urine Nitrate Negative, Urine Bilirubin Negative, Urine Urobilinogen 0.2, Ur Leukocyte Esterase Negative, Urine RBC Occasional, Urine WBC Occasional, Ur Squamous Epith Cells 3-5, Urine Bacteria 1+ 12/30/24 14:20 12/30/24 14:20 Orders (Tests/Meds): ORDERS Category Date Time Status CT cervical spine wo con Stat Cat Scan 12/30/24 14:[address] head/brain wo con Stat Cat Scan 12/30/24 14:22 Completed Pelvis XR 1-2 views [XR pelvis 1-2V] Stat Exams 12/30/24 14:23 Completed XR chest portable Stat Exams 12/30/24 14:23 Completed XR elbow LT 2V Stat Exams 12/30/24 14:28 Completed XR femur LT 2V Stat Exams 12/30/24 14:24 Completed XR humerus LT Stat Exams 12/30/24 14:28 Completed Complete Blood Count Auto Diff Stat Lab 12/30/24 14:20 Completed Comprehensive Metabolic Panel Stat Lab 12/30/24 14:20 Completed HIV Combo Stat Lab 12/30/24 14:20 Completed Hepatitis C Ab Qual. W/ RFX Stat Lab 12/30/24 14:20 Completed Urinalysis (cathed specimen) Stat Lab 12/30/24 15:37 Completed Medical Decision Narrative: 84-year-old female presents emergency department with a mechanical fall via EMS, complaining of left lower extremity pain, differential diagnose include but not limited to femur fracture, pelvic fracture, acute SDH, traumatic SAH, cervical spine fracture, soft tissue contusion, abrasions, among others. I discussed this patient's case with the attending physician Will obtain basic laboratory studies, CXR, CT head without contrast, CT cervical spine without contrast, x-ray of the elbow on the left, x-ray of the femur on the left, pelvic x-ray, x-ray of the humerus on the left for further evaluation/characterization. CBC unremarkable CMP is notable for minimal AST elevation at [address] I [address] the patient [address] head without contrast along with corresponding radiologic report, I did discuss this with the radiologist (Dr. Reaves) who called me personally at approximately 3:12 PM, patient has a 6 cm broad left parietal scalp hematoma on axial image 60, coronal image 70 and sagittal image 74 no evidence of radiopaque foreign body, there is a subarachnoid blood involving the cortical surface of the left parietal lobe on axial image 53, there is also a right parietal subarachnoid blood on axial image 16 and sagittal image 37 no extra-axial collection is identified. I reviewed the patient's CT cervical spine without contrast along the corresponding radiologic report, there is no evidence of acute fracture. I discussed this patient's case with [facility] transfer physician at approximately 3:23 PM, she is in agreement with current treatment plan/transfer plan, patient will be transferred to [facility] emergency department as a polytrauma, for a left femur fracture, appearing low neck per radiologist, as well as traumatic SAH. Patient and family in agreement with the current treatment plan/transfer plan. Patient is stable for transport at this time. Patient was transported via EMS at approximately 3:45 PM, c-collar was discontinued after cervical spine imaging ruled out any C-spine fracture, patient has no pain to palpation to the cervical spine, patient cleared to be transferred to [facility] for traumatic SAH and left femur fracture. Stable upon transport. <Roshan Pina MD - Last Filed: 12/31/24 07:06> Vital Signs: 12/30/24 14:12 12/30/24 15:00 12/30/24 15:30 Temperature 98.2 F Temperature Source Oral Pulse Rate 87 91 H Pulse Rate [Apical] 85 Respiratory Rate 18 19 26 H Blood Pressure 188/63 H 212/69 H Blood Pressure [Right Arm] 175/58 H Blood Pressure Mean [Right Arm] 97 Blood Pressure Source Blood Pressure Source [Right Arm] Automatic Cuff Blood Pressure Position Blood Pressure Position [Right Arm] Sitting 02 Sat by Pulse Oximetry 95 91 L 95 Oxygen Delivery Method Room Air Room Air 12/30/24 15:38 12/30/24 15:45 Temperature 98.2 F Temperature Source Oral Pulse Rate 95 H 90 Pulse Rate [Apical] Respiratory Rate 25 H 18 Blood Pressure 182/66 H 182/66 H Blood Pressure [Right Arm] Blood Pressure Mean [Right Arm] Blood Pressure Source Automatic Cuff Blood Pressure Source [Right Arm] Blood Pressure Position Sitting Blood Pressure Position [Right Arm] 02 Sat by Pulse Oximetry 94 L Oxygen Delivery Method Room Air Room Air Lab Data Lab Results 12/30/24 14:20: WBC 6.5, RBC 3.76 L, Hgb 11.5 L, Hct 32.8 L, MCV 87.2, MCH 30.6, MCHC 35.1, RDW 13.8, Plt Count 201, MPV 9.8, Neut % (Auto) 67.9, Lymph % (Auto) 25.0, [place] % (Auto) 5.4, Eos % (Auto) 0.9, Baso % (Auto) 0.3, Neut # (Auto) 4.4, Lymph # (Auto) 1.6, [place] # (Auto) 0.4, Eos # (Auto) 0.1, Baso # (Auto) 0.0, Sodium 140, Potassium 3.6, Chloride 106, Carbon Dioxide 28, Anion Gap 9.6, BUN 19 H, Creatinine 0.80, Estimated Creat Clear 60, Estimated GFR 69, Est GFR ( Amer) 83, Glucose 103 H, Calcium 8.9, Total Bilirubin 0.6, AST 59 H, ALT 32, Alkaline Phosphatase 89, Total Protein 6.3, Albumin 3.9, Globulin 2.4, Albumin/Globulin Ratio 1.6, HCV Ab TIFFANI w/Rflx PCR Qn Negative, HIV Ag/Ab Combo Qual Negative 12/30/24 15:37: Urine Color Yellow, Urine Appearance Clear, Urine pH 5.5, Ur Specific [place] 1.020, Urine Protein Negative, Urine Glucose (UA) Negative, Urine Ketones Negative, Urine Blood Negative, Urine Nitrate Negative, Urine Bilirubin Negative, Urine Urobilinogen 0.2, Ur Leukocyte Esterase Negative, Urine RBC Occasional, Urine WBC Occasional, Ur Squamous Epith Cells 3-5, Urine Bacteria 1+ Orders (Tests/Meds): ORDERS Category Date Time Status CT cervical spine wo con Stat Cat Scan 12/30/24 14:[address] head/brain wo con Stat Cat Scan 12/30/24 14:22 Completed Pelvis XR 1-2 views [XR pelvis 1-2V] Stat Exams 12/30/24 14:23 Completed XR chest portable Stat Exams 12/30/24 14:23 Completed XR elbow LT 2V Stat Exams 12/30/24 14:28 Completed XR femur LT 2V Stat Exams 12/30/24 14:24 Completed XR humerus LT Stat Exams 12/30/24 14:28 Completed Complete Blood Count Auto Diff Stat Lab 12/30/24 14:20 Completed Comprehensive Metabolic Panel Stat Lab 12/30/24 14:20 Completed HIV Combo Stat Lab 12/30/24 14:20 Completed Hepatitis C Ab Qual. W/ RFX Stat Lab 12/30/24 14:20 Completed Urinalysis (cathed specimen) Stat Lab 12/30/24 15:37 Completed ECG Data Tracing #1: I reviewed this ECG and interpreted as documented below: Normal sinus rhythm. No ST elevation or depression. No T wave inversions. QTc normal at 443 Medical Decision Narrative: 84-year-old female presents emergency department with a mechanical fall via EMS, complaining of left lower extremity pain, differential diagnose include but not limited to femur fracture, pelvic fracture, acute SDH, traumatic SAH, cervical spine fracture, soft tissue contusion, abrasions, among others. I discussed this patient's case with the attending physician Will obtain basic laboratory studies, CXR, CT head without contrast, CT cervical spine without contrast, x-ray of the elbow on the left, x-ray of the femur on the left, pelvic x-ray, x-ray of the humerus on the left for further evaluation/characterization. CBC unremarkable CMP is notable for minimal AST elevation at [address] I reviewed the patient [address] head without contrast along with corresponding radiologic report, I did discuss this with the radiologist (Dr. Reaves) who called me personally at approximately 3:12 PM, patient has a 6 cm broad left parietal scalp hematoma on axial image 60, coronal image 70 and sagittal image 74 no evidence of radiopaque foreign body, there is a subarachnoid blood involving the cortical surface of the left parietal lobe on axial image 53, there is also a right parietal subarachnoid blood on axial image 16 and sagittal image 37 no extra-axial collection is identified. I reviewed the patient's CT cervical spine without contrast along the corresponding radiologic report, there is no evidence of acute fracture. I discussed this patient's case with [facility] transfer physician at approximately 3:23 PM, she is in agreement with current treatment plan/transfer plan, patient will be transferred to [facility] emergency department as a polytrauma, for a left femur fracture, appearing low neck per radiologist, as well as traumatic SAH. Patient and family in agreement with the current treatment plan/transfer plan. Patient is stable for transport at this time. Patient was transported via EMS at approximately 3:45 PM, c-collar was discontinued after cervical spine imaging ruled out any C-spine fracture, patient has no pain to palpation to the cervical spine, patient cleared to be transferred to [facility] for traumatic SAH and left femur fracture. Stable upon transport. I was consulted by the KHADIJAH, and we discussed the complexity of the problems being addressed. I approve the treatment and management plan for this patient's care in the emergency department, thus performing a substantive portion of the medical decision making. Roshan Pina MD Critical Care <PABLO Ray - Last Filed: 12/30/24 15:52> Critical Care Time Critical Care Time: Yes Attestation: On 12/30/24, the high probability of a clinically significant, sudden or life threatening deterioration of the following system(s) required my full and direct attention, intervention and personal management. The time I documented below is in addition to time spent performing reported procedures but includes the following listed in this critical care notation. Total Time Total Critical Care Time: 30
--- OUTSIDE RECORDS SUMMARY | 2024-12-30 14:32 | XMS_ITS | Encounter Summary ---
Author Organization [facility] Address [address] [place] [address], [address] [place] [address] Care Team Providers Care Competitive Shopper Name Role Phone Lilly Zimmerman MD, Rakesh Primary Care Provider U ava Encounter Details Date Type Department Care Team (Late st Contact Info) Description 06/22/2018 FollowUp Telephone Encounter [facility] Case Management [address] [place] [address] [phone] Kenisha Wilson LISW Social History Tobacco Use Types Packs/Day Years Used Date Smoking Tobacco: Never Smokeless Tobacco: Never Comments No Sex and Gender Information Value Date Recorded Sex Assigned at Not on file Legal Sex Female 12:28 PM EST Gender Identity Not on file Sexual Orientation Not on file documented as of this encounter Plan of Treatment Not on file documented as of this encounter Visit Diagnoses Not on filedocumented in this encounter Care Teams Competitive Shopper Relationship Specialty Start Date End Date Rakesh Carr MD [address] [place] [address] PCP - General Family Medicine 06/17/18 documented as of this encounter
--- OUTSIDE RECORDS SUMMARY | 2024-12-30 14:32 | XMS_ITS | Encounter Summary ---
Author Organization [facility] Address [address] [place] [address], [address] [place] [address] Care Team Providers Care Chainstitch Binder Name Role Phone Lilly Zimmerman MD, Rakesh Primary Care Provider U ava Encounter Details Date Type Department Care Team (Late st Contact Info) Description 06/27/2018 FollowUp Telephone Encounter [facility] Case Management [address] [place] [address] [phone] Kenisha Wilson LISW Social History Tobacco Use [...] on filedocumented in this encounter Care Teams Chainstitch Binder Relationship Specialty Start Date End Date Rakesh Carr MD [address] [place] [address] PCP - General Family Medicine 06/17/18 documented as of this encounter
--- OUTSIDE RECORDS SUMMARY | 2024-12-30 14:32 | XMS_ITS | Encounter Summary ---
Author Organization [place] [address] Care Team Providers Care Harm Reduction Worker Name Role Phone Lilly Zimmerman MD, Harold Primary Care Provider + Encounter Details Date Type Department Care Team (Late st Contact Info) Description 12/19/2024 Abstract Structural Hrt/Valve [address] [facility] [address] [place], [place] [id number] Anayeli Alan, RMA Social History Tobacco Use Types Packs/Day Years Used Date Smoking Tobacco: Never Smokeless Tobacco: Never Alcohol Use Standard Drinks/Week Comments Never 0 (1 standard drink = 0.6 oz pur e alcohol) [facility] Utilities Answer Date Recorded In the past 12 months has e electric, gas, oil, or water company threatened to shut off services in your home? No 10/26/2024 Overall Financial Resource Strain (CARDIA) Answe r Date Recorded How hard is it for you to pa y for the very basics like food, housing, medical care, and heating? Not very hard 10/26/2024 PHQ-2 Answer Date Recorded PHQ-2 Total Score 0 10/26/2024 [facility] Point of Occupat ional Health - Occupational Stress [...] money to get more. Never true 10/26/2024 [facility]RSN [facility] IP Transportation Answer D ate Recorded In [...] on file documented as of this encounter Progress Notes * Anayeli Alan, A - 12/19/2024 8:22 AM EDTSummary: [id number] Procedure Date: 10/26/24 Procedure: TAVR Name: Mindy Chandler : 1940 Gender: female Race: White or Weight: Wt Readings from Last 6 Encounters: 12/04/24 182 lb 12.8 oz (82.9 kg) 11/08/24 186 lb 6.4 oz (84.6 kg) 10/27/24 187 lb 6.4 oz (85 kg) 10/05/24 187 lb (84.8 kg) 10/04/24 186 lb (84.4 kg) 09/01/24 187 lb 8 oz (85 kg) Height: Ht Readings from Last 1 Encounters: 10/26/24 5' 6 (1.676 m) Payor: [employer] MR / Plan: [employer] MEDICARE HMO MR / Product Type: *No Product type* / Patient Active Problem List Diagnosis Status post angioplasty with stent Status post coronary angioplasty Severe aortic stenosis Past Medical History: Diagnosis Date Aortic stenosis Arthritis CAD (coronary artery disease) STEEL (dyspnea on exertion) Essential (primary) hypertension Heart murmur Social History Tobacco Use Smoking status: Never Smokeless tobacco: Never Substance Use Topics Alcohol use: Never Current Outpatient Medications Medication acetaminophen 325 mg Oral Tab amitriptyline (ELAVIL) 100 mg Oral Tablet amLODIPine (NORVASC) 5 mg Oral Tablet aspirin 81 mg Oral Tablet, Chewable atorvastatin (LIPITOR) 20 mg Oral Tablet Cholecalciferol, Vitamin D3, 50 mcg (2,000 unit) Oral Capsule doxazosin (CARDURA) 1 mg Oral Tablet esomeprazole (NEXIUM) 40 mg Oral Capsule, Delayed Release(E.C.) fenofibrate (TRICOR) 48 mg Oral Tablet fluticasone propionate (FLONASE) 50 mcg/actuation Nasl [place], Suspension fUROsemide (LASIX) 20 mg Oral Tablet gabapentin (NEURONTIN) 100 mg Oral Capsule hydroCHLOROthiazide (MICROZIDE) 12.5 mg Oral Capsule lisinopriL (PRINIVIL;ZESTRIL) 20 mg Oral Tablet tablet ticagrelor (BRILINTA) 90 mg Oral Tablet VITAMIN D 1,250 mcg (50,000 unit) Oral Capsule No current facility-administered medications for this visit. Hgb: Hgb Date/Time Value Ref Range Status 10/27/2024 10:02 AM 12.2 11.2 - 15.7 g/dL Final 10/04/2024 10:16 AM 12.7 11.2 - 15.7 g/dL Final 08/30/2024 09:30 AM 12.4 11.2 - 15.7 g/dL Final BNP: NT Pro-BNP Date/Time Value Ref Range Status 10/26/2024 08:30 AM 1,867 (H) <=624 pg/mL Final Creatinine: Platelet Date/Time Value Ref Range Status 10/27/2024 10:02 AM 141 (L) 155 - 369 x10(3)/mcL Final 10/04/2024 10:16 AM 215 155 - 369 x10(3)/mcL Final 08/30/2024 09:30 AM 213 155 - 369 x10(3)/mcL Final INR: INR Date/Time Value Ref Range Status 10/04/2024 10:16 AM 1.12 0.91 - 1.18 (ratio) Final Comment: Level of Therapy Indications Target INR Range Standard Dose Treatment and prophylaxis of venous 2.0 - 3.0 thrombosis, pulmonary embolism High Dose High risk patients with mechanical 2.5 - 3.5 heart valves Albumin:No results found for: ALBUMIN Bilirubin:No results found for: BILITOT , BILIDIR , BILIRUBINUR , BILIINDIRECT STS Risk Score: AV Replace: NA % Risk Stratification: n/a NYHA: Class II: Slight limitation of physical activity. Comfortable at rest. Ordinary physical activity results in fatigue, palpitation, dyspnea (shortness of breath). KCCQ12: Yes, scanned 5 Meter Walk Test: no Additional Notes: OV12/04/24 documented in this encounter Plan of Treatment Upcoming Encounters Date Type Department Care Team (Late st Contact Info) Description 03/29/2025 2:30 PM EDT Office Visit [facility]P [facility]PTF[facility] [address] [place] [phone] Priscilla Mejía APRN [address] [place] [address] 11/06/2025 11:45 AM EDT Appointment [facility] [address] [place] [address] [address] [place] [address] Charlotte Patel MD [address] [place] [id number] 11/09/2025 11:00 AM EDT Office Visit Structural Hrt/Valve [address] [place] [address] [address] [place] [address] documented as of this encounter Goals Goal Patient Goal Type Associated Problems Recent Progress Patient-Stated? Author Blood Pressure < 140/90 Blood Pressure 153/48(2024 8:40 AM EDT) No Suma Justice MA Maintain a healthy diet, exercise regularly and maintain an ideal body weight General No Ghazal Lu RMA documented as of this encounter Visit Diagnoses Not on filedocumented in this encounter Care Teams Harm Reduction Worker Relationship Specialty Start Date End Date Rakesh Carr MD [address] [place] [phone] PCP - General Family Medicine 03/16/12 documented as of this encounter
--- OUTSIDE RECORDS SUMMARY | 2024-12-30 14:32 | XMS_ITS | Clinical Summary ---
Author Organization [facility] Address [address] [place] [address] Phone Care Team Providers Care Physicist [place] Name Role Phone Lilly Zimmerman MD, Harold Primary Care Provider + Allergies Active Allergy Reactions Criticality Noted Date Comments Penicillins Hives,Anaphylaxis High 08/20/2008 Clopidogrel Swelling 09/08/2024 Possible Lip Swelling Medications aspirin 81 mg Oral Tablet, Chewable Take 1 tablet every day by oral route as directed. Active Cholecalciferol, Vitamin D3, 50 mcg (2,000 unit) Oral Capsule Take 1 Capsule by mouth daily. 4 Active esomeprazole (NEXIUM) 40 mg Oral Capsule, Delayed Release(E.C.) Take 1 capsule every day by oral route before meals for 90 days. Active fluticasone propionate (FLONASE) 50 mcg/actuation Nasl [place], Suspension SPRAY 2 SPRAYS ONCE A DAY BY INTRANASAL ROUTE. Active fUROsemide (LASIX) 20 mg Oral Tablet Take 1 tablet every day by oral route in the morning for 90 days, for swelling. Active gabapentin (NEURONTIN) 100 mg Oral Capsule Take 2 capsules 3 times a day by oral route for 30 days. 4 Active hydroCHLOROthiazi de (MICROZIDE) 12.5 mg Oral Capsule Take 1 Capsule by mouth daily. Active lisinopriL (PRINIVIL;ZESTRIL ) 20 mg Oral Tablet tablet Take 1 tablet every day by oral route. Active doxazosin (CARDURA) 1 mg Oral TabletIndications :Primary hypertension Take 1 Tablet by mouth daily. 90 Tablet 2 4 Active amitriptyline (ELAVIL) 100 mg Oral Tablet Take 150 mg by mouth nightly. Active acetaminophen 325 mg Oral Tab Take 2 Tablets by mouth every 4 hours as needed for Pain. 5 Active amLODIPine (NORVASC) 5 mg Oral Tablet Take 1 Tablet by mouth daily. Active VITAMIN D 1,250 mcg (50,000 unit) Oral Capsule Take 50,000 Units by mouth once a week. 5 Active fenofibrate (TRICOR) 48 mg Oral Tablet Take 1 Tablet by mouth daily. 90 Tablet 1 5 Active atorvastatin (LIPITOR) 20 mg Oral Tablet Take 1 Tablet by mouth nightly. 90 Tablet 1 5 Active ticagrelor (BRILINTA) 90 mg Oral TabletIndications :Nonrheumatic aortic valve stenosis TAKE 1 TABLET BY MOUTH 2 TIMES DAILY. 60 Tablet 2 5 Active Active Problems Problem Noted Date Diagnosed Date Severe aortic stenosis 09/15/2024 Status post coronary angioplasty 09/01/2024 Status post angioplasty with stent 06/28/2024 Encounters Date Type Department Care Team Description 12/19/2024 Abstract Structural Hrt/Valve [address] [place] [address] [place], [place] [id number] Anayeli Alan RMA 12/04/2024 8:40 AM EDT Office Visit Structural Hrt/Valve [address] [place] [address] [address] [place] [phone] Sabina De Leon APRN Severe aortic stenosis (Primary Dx); S/P TAVR (transcatheter aortic valve replacement); Primary hypertension; Pure hypercholesterolemia 11/30/2024 2:32 PM EDT - 11/30/2024 11:59 PM EDT Hospital Encounter [facility] [address] [place] [address] [address] [place] [address] Severe aortic stenosis; S/P TAVR (transcatheter aortic valve replacement) Discharge Disposition: Home or Self Care 11/14/2024 Refill Structural Hrt/Valve [address] [place] [address] [address] [place] [address] Keanu Vincent MD Medication Refill 11/08/2024 10:40 AM EDT Office Visit Structural Hrt/Valve [address] [place] [address] [place] [address] Alexandria Kunz APRN S/P TAVR (transcatheter aortic valve replacement) (Primary Dx); 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 [address] Chip Prince MD Trog, Lynnsey, APRN 10/26/2024 9:20 AM EDT - 10/26/2024 11:10 AM EDT Surgery [facility] [place] [address] Mingo Joseph MD TRANSCATHETER AORTIC VALVE IMPLANTATION 10/26/2024 9:09 AM EDT - 10/26/2024 11:59 PM EDT Hospital Encounter [facility] [place] [address] Mingo Joseph MD Khoury, Saeb, MD Severe aortic stenosis Discharge Disposition: Home or Self Care 10/26/2024 5:43 AM EDT - 10/27/2024 1:26 PM EDT [place] [address] Mingo Joseph MD Khoury, Saeb, MD Severe aortic stenosis (Primary Dx); Pre-op testing; S/P TAVR (transcatheter aortic valve replacement) Discharge Disposition: Home or Self Care 10/26/2024 Travel 10/19/2024 Travel 10/12/2024 Telephone Structural Hrt/Valve [address] [place] [address] Anayeli Alan, RMLuc Medication Refill (Brilinta ) 10/11/2024 Telephone Structural Hrt/Valve [address] [place] [address] [place] [address] Aurora Oliver, DIMITRY Other 10/11/2024 Telephone Structural Hrt/Valve [address] [facility] [address] [place] [address] Aurora Oliver, DIMITRY Other 10/10/2024 Telephone Structural Hrt/Valve [address] [facility] [address] [place] [address] Tania Gilman RN Other 10/05/2024 10:45 AM EDT Office Visit [facility] H&V NPTFTT [address] [place] [phone] Keanu Vincent MD Severe aortic stenosis (Primary Dx); 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 [address] Sabina De Leon APRN Discharge Disposition: Home or Self Care 10/04/2024 9:01 AM EDT - 10/04/2024 9:08 AM EDT Hospital Encounter [facility] [place] [address] Sabina De Leon APRN Discharge Disposition: Home or Self Care 10/04/2024 8:29 AM EDT - 10/04/2024 9:00 AM EDT Hospital Encounter [facility] PRE-ADMIT TESTING [facility] [place] [address] Severe aortic stenosis Discharge Disposition: Home or Self Care 10/04/2024 Travel from Last 3 Months Surgical History Surgery Date Site/Laterality Comments CHOLECYSTECTOMY CORONARY PERCUTANEOUS INTERVENTION(PCI) 09/01/2024 N/A CORONARY PERCUTANEOUS INTERVENTION; Surgeon: Keanu Vincent MD; Location: [facility]; Service: Cardiac Medical devices from this surgery are in the Medical Devices section. CARDIAC CATHETERIZATION EYE SURGERY cataracts AORTIC VALVE REPLACEMENT 10/26/2024 N/A TRANSCATHETER AORTIC VALVE IMPLANTATION; Surgeon: Mingo Joseph MD; Location: [facility]IN [facility]; Service: Open Heart Medical devices from this surgery are in the Medical Devices section. Medical History Medical History Date Comments Aortic stenosis Essential (primary) hypertension STEEL (dyspnea on exertion) CAD (coronary artery disease) Arthritis Heart murmur Family History Medical History Relation Name Comments Heart Disease Father Heart Disease Mother Cancer Sister 1 lung, brain Stroke Sister 2 Anesth Problems Neg Hx Relation Name Status Comments Father Mother Sister 1 Sister 2 Social History Tobacco Use Types Packs/Day Years Used Date Smoking Tobacco: Never Smokeless Tobacco: Never Tobacco Cessation:Counseling Given: Not Answered Alcohol Use Standard Drinks/Week Comments Never 0 (1 standard drink = 0.6 oz pur e alcohol) [facility] Utilities Answer Date Recorded In the past [...] Date Recorded PHQ-2 Total Score 0 10/26/2024 [facility] - Occupational Stress [...] money to get more. Never true 10/26/2024 [facility] IP Transportation Answer D ate Recorded [...] on file Sexual Orientation Not on file Obstetrics History Last Filed Vital Signs Vital Sign Reading Time Taken Comments Blood Pressure 153/48 12/04/2024 8:40 AM EDT Pulse 94 12/04/2024 8:40 AM EDT Temperature 36.5 C (97.7 F) 10/27/2024 9:30 AM EDT Respiratory Rate 18 10/27/2024 9:30 AM EDT Oxygen Saturation 98% 12/04/2024 8:40 AM EDT Inhaled Oxygen Concentration - - Weight 82.9 kg (182 lb 12.8 oz) 12/04/2024 8:40 AM EDT Height 167.6 cm (5' 6 ) 10/26/2024 6:21 AM EDT Body Mass Index 29.5 10/26/2024 6:21 AM EDT Plan of Treatment Upcoming Encounters Date Type Department Care Team (Late st Contact Info) Description 03/29/2025 2:30 PM EDT Office Visit [facility] H[facility]V NPTFTT [address] [place] [address] Priscilla Mejía, PORTER SAMPLE [facility] [address] [place] [address] 11/06/2025 11:45 AM EDT Appointment [facility] [address] [place] [address] [address] [place] [phone] Charlotte Patel MD [address] [place] [address] 11/09/2025 11:00 AM EDT Office Visit Structural Hrt/Valve [address] [place] [address] [address] [place] [address] Health Maintenance Due Date Last Done Comments Wellness Exam Medicare 1943 Bone Density Screening 2007 RSV or 60+ (1 - 1-dose 75+ series) 2017 COVID-19 Vaccine ( season) 2024 Influenza Vaccine (#1) 2025 , 06/11/2022, 02/14/2021, Additional history exists DTaP/TDaP/Td (2 - Td or Tdap) 02/20/2029 02/20/2019, 01/18/2007, 12/26/1996 Pneumococcal Vaccine 50+ Completed 2019, 03/15 Zoster Completed 08/11/2020, 01/2021, 04/05/2020, Additional history exists Hepatitis B Vaccine Aged Out No longe r eligible based on patient's age to complete this topic Meningococcal B Vaccine Aged Out No l onger eligible based on patient's age to complete this topic Goals Goal Patient Goal Type Associated Problems Recent Progress Patient-Stated? Author Blood Pressure < 140/90 Blood Pressure 153/48(2024 8:40 AM EDT) No Suma Justice MA Maintain a healthy diet, exercise regularly and maintain an ideal body weight General No Ghazal Lu RMA Medical Devices Implanted Type Area Watch Assembly Inspector Device Identifier Shelf Expiration Date Model / Serial / Lot Iol System Stent Coronary Thee Synergy Xd 4mm X 24mm Mr Rx [employer] - [id number] Implanted:Qty: 1 on 09/01/2024 by Keanu Vincent MD at [facility] N/A: [employer] [id number] 12/07/2025 [id number] / / [id number] Carcamo Marguerite 3 Ultra Transcatheter Heart Valve (23mm) - [id number] Implanted:Qty: 1 on 10/26/2024 by Mingo Joseph MD at [facility] N/A: Heart [employer] 03/13/2027 [id number] / [id number] / Procedures Procedure Name Priority Date/Time Associated Diagnosis Comments EC ECHOCARDIOGRAM COMPLETE W DOPPLER AND COLOR FLOW MAPPING Routine 11/30/2024 3:51 PM EDT Severe aortic stenosis S/P TAVR (transcatheter aortic valve replacement) SCANNED RHYTHM STRIPS 10/28/2024 12:59 AM EDT BASIC METABOLIC PANEL Early AM 10/27/2024 10:02 AM EDT CBC WITH DIFF Early AM 10/27/2024 10:02 AM EDT GLUCOSE METER POC Routine 10/27/2024 9:5 3 AM EDT EC ECHOCARDIOGRAM 2D M MODE COMPLETE W CONTRAST STAT 10/27/2024 8:38 AM EDT ECG AND WAVEFORMS - TELEMETRY Routine 10/27/2024 7:25 AM EDT ECG AND WAVEFORMS - TELEMETRY Routine 10/26/2024 7:31 PM EDT IP CONSULT TO WOUND CARE Routine 10/26/2024 12:43 PM EDT ECG AND WAVEFORMS - TELEMETRY Routine 10/26/2024 12:39 PM EDT DISCONTINUE IV Routine 10/26/2024 12:26 PM EDT EK EKG 12 LEAD STAT 10/26/2024 11:09 AM EDT ADMIT Routine 10/26/2024 10:58 AM EDT EC ECHOCARDIOGRAM LIMITED Routine 10/26/2024 10:52 AM EDT Severe aortic stenosis CARDIAC PROCEDURE Routine 10/26/2024 10:33 AM EDT Severe aortic stenosis Procedure Note - Mingo Joseph MD - 10/26/2024 10:33 AM EDTThis note is in progress. Successful Placement of Carcamo # 23 Valve Findings Procedure Details Procedure Performed : Transcatheter aortic valve replacement (TAVR) Using # 23 S3 Heart Valve Indications of the Procedure: 1. Severe symptomatic aortic stenosis with congestive heart failure. Acute on Chronic Diastolic heart Failure OPERATORs: Omkar Nowak M.D., Mingo Joseph MD SURGICAL TEAM: Dr Nevarez Details of the Procedure: Indications, risks, and benefits of the procedure were fully explained to the patient and consent was obtained. The patient was brought to the hybrid O.R. suite where anesthesia performed MAC. The patient was prepped and draped in the surgical fashion for an open aortic valve surgery. Left femoral vein was accessed and an 8 Fr Sheath was placed by Anaesthesia. Under fluoroscopic guidance, a temporary pacemaker was advanced to the RV apex and accessed Under US guidance and using micropuncture, , the L- femoral artery was accessed using modified Seldinger technique, and a 6French femoral sheath was placed in the left femoral artery. Under US guidance and using micropuncture, the R- femoral artery was accessed and a long wire was advanced to the descending aorta. An 8 Guamanian sheath was advanced over the wire. One Perclose device was placed in the R femoral artery before advancing a the 8 Fr sheath. A CAMACHO catheter was advanced to allow exchange for an extra stiff Lunderquist wire which was placed in the descending aorta. A 14 Fr sheath was placed in exchange for the 8 Fr Sheath. Heparin was given by anesthesia and adequate ACT was obtained. Through the L- femoral artery, a pigtail catheter was advanced to the aortic valve and aortic root injection was performed in the previously determined coplanar view and adjustments were made. Repeat aortic root injection put us in what we thought was the best coplanar view. Next, an AL1 catheter was then advanced through the 14 Fr to the aortic root, and a straight wire was used to cross the aortic valve. This allowed us to exchange the wire with a J-tipped wire which was placed in the LV and a pigtail catheter was then advanced to the LV. A pre-shaped Safari long wire was then advanced through the pigtail A TTE was also performed at the same time. Meanwhile, A transcatheter heart valve #* 23 Marguerite S3 was being prepped . When we were ready, the Valve catheter was then advanced through the E-sheath up to the descending aorta where the balloon was pulled to preload the heart valve. After flexing the catheter and advancing the sheath, the valve on the balloon was advanced to the aortic valve in the predetermined coplanar angle. The sheath was then pulled back ensuring that the valve inflation was not hampered by the sheath. Adjustment on the position was made per protocol. Pacing was initiated at 160 ensuring the systolic blood pressure was 50. The balloon was then slowly inflated using the predetermined regular volume. After deflating the balloon, the pacing was discontinued and TTE was performed ensuring adequate positioning of the valve and ensuring there is no effusion or significant AI. The position of the valve was deemed appropriate with trace incompetence. The catheter was then pulled out of the sheath and preperations were being done to Perclose the site and the right femoral sheath was pulled and hemostasis was done percutaneously. Angioseal of the L femoral sheath was done. The patient left the OR in stable hemodynamic condition. CONCLUSION: 1- Successful placement of the transcatheter heart valve Marguerite S3 # 23 with trace aortic incompetence. This was done through a R-femoral approach under US guidance percutaneously. 2- Temporary pacemaker placement Hemodynamics LVEDP 22 MMHG Gradient of almost 100 mg across the valve Post deployment Mean Gradient 8 MMHG PLAN: The patient will be observed in the [facility]. She will be managed per protocol. Gentle diuresis ACTIVATED CLOTTING TIME + POC Routine 10/26/2024 10:04 AM EDT INTRAOP AIRWAY PLACEMENT Routine 10/26/2024 9:41 AM EDT BB HISTORY CHECK STAT 10/26/2024 8:30 AM EDT Pre-op testing ABORH STAT 10/26/2024 8:30 AM EDT Pre-op testing NT PROBNP STAT 10/26/2024 8:30 AM EDT Severe aortic stenosis BB HISTORY CHECK Routine 10/04/2024 10:16 AM EDT Severe aortic stenosis SURGERY DATE Routine 10/04/2024 10:16 AM EDT Severe aortic stenosis ANTIBODY SCREEN IGG Routine 10/04/2024 10:16 AM EDT Severe aortic stenosis ABORH Routine 10/04/2024 10:16 AM EDT Severe aortic stenosis PREADMISSION TYPE AND SCREEN Routine 10/04/2024 10:16 AM EDT Severe aortic stenosis HEMOGLOBIN A1C Routine 10/04/2024 10:16 AM EDT Severe aortic stenosis PT / INR Routine 10/04/2024 10:16 AM EDT Severe aortic stenosis BASIC METABOLIC PANEL Routine 10/04/2024 10:16 AM EDT Severe aortic stenosis CBC WITH DIFF Routine 10/04/2024 10:16 AM EDT Severe aortic stenosis URINALYSIS REFLEX Routine 10/04/2024 9:1 4 AM EDT Severe aortic stenosis UA W/REFLEX TO CULTURE Routine 10/04/2024 9:14 AM EDT Severe aortic stenosis XR CHEST PA AND LATERAL ALBERTO 10/04/2024 9:14 AM EDT EXTRA RANDOLPH URINE CX Routine 10/04/2024 9 :14 AM EDT Severe aortic stenosis EK EKG 12 LEAD STAT 10/04/2024 9:01 AM EDT from Last 3 Months Results * EC ECHOCARDIOGRAM COMPLETE W DOPPLER AND COLOR FLOW MAPPING (11/30/2024 3:51 PM EDT) Pathologist [facility] Ejection Fraction 65-70% PYRAMIS MITRAL REGURGITATION trace [...] m/s with a peakgradient of 97 mmHg. us Sabina De Leon APRN IMG ECHO ORDERABLES Final R esult * SCANNED RHYTHM STRIPS (10/28/2024 12:59 AM EDT) Anatomical Region Laterality Modality Other 10/28/2024 12:5 9 AM EDT us Unknown Provider IMG ECG ORDERABLES Final Result * (ABNORMAL) CBC WITH DIFF (10/27/2024 10:02 AM EDT) Only the most recent of2 resultswithin the time period is included. WBC 7.0 3.7 - 10.3 x10(3)/mcL 10/27/2024 10:20 AM EDT [facility] RBC 4.13 3.90 - 5.20 x10(6)/mcL 10/27/2024 10:20 AM EDT [facility] Hgb 12.2 11.2 - 15.7 g/dL 10/27/2024 10:20 AM EDT [facility] Hct 36.3 34.0 - 45.0 % 10/27/2024 10:20 AM EDT [facility] MCV 87.9 80.0 - 100.0 fL 10/27/2024 10:20 AM EDT [facility] MCH 29.5 26.0 - 34.0 pg 10/27/2024 10:20 AM EDT [facility] MCHC 33.6 30.7 - 35.5 g/dL 10/27/2024 10:20 AM EDT [facility] RDW 13.6 <=14.9 % 10/27/2024 10:20 AM EDT [facility] Platelet 141(L) 155 - 369 x10(3)/[facility] 10/27/2024 10:20 AM EDT [facility] MPV 10.6 8.8 - 12.5 fL 10/27/2024 10:20 AM EDT [facility] Neut Percent 71.1 % 10/27/2024 10:20 AM EDT [facility] Comment:Neutrophils equals s egs plus bands Imm Gran% 0.4 % 10/27/2024 10:20 AM EDT [facility] Comment:Automated count of m etamyelocytes, myelocytes and promyelocytes. Lymph Percent 22.1 % 10/27/2024 10:20 AM EDT [facility] Waller Percent 5.9 % 10/27/2024 10:20 AM EDT [facility] Eos Percent 0.4 % 10/27/2024 10:20 AM EDT [facility] Baso Percent 0.1 % 10/27/2024 10:20 AM EDT [facility] Neut # 5.0 1.6 - 6.1 x10(3)/mcL 10/27/2024 10:20 AM EDT [facility] Comment:Neutrophils equals s egs plus bands IMMGRAN# 0.0 0.0 - 0.1 x10(3)/[facility] 10/27/2024 10:20 AM EDT [facility] Comment:Automated count of m etamyelocytes, myelocytes and promyelocytes. An absolute IG <0.1 is reported as 0.0. Lymph # 1.6 1.2 - 3.9 x10(3)/[facility] 10/27/2024 10:20 AM EDT [facility] Waller # 0.4 0.3 - 0.9 x10(3)/[facility] 10/27/2024 10:20 AM EDT [facility] Eos# 0.0 0.0 - 0.5 x10(3)/[facility] 10/27/2024 10:20 AM EDT [facility] Baso # 0.0 0.0 - 0.1 x10(3)/[facility] 10/27/2024 10:20 AM EDT [facility] Blood VENOUS BLOOD / Unknown Venipuncture / Unknown 10/27/2024 10:02 AM EDT 10/27/2024 10:06 AM EDT us Sabina De Leon PORTER SAMPLE CASE HEMATOLOGY ORDERABLES Final Result [facility] [address] [facility] , [place] [address] * (ABNORMAL) BASIC METABOLIC PANEL (10/27/2024 10:02 AM EDT) Only the most recent of2 resultswithin the time period is included. Sodium 141 136 - 145 mmol/L 10/27/2024 10:42 AM EDT [facility] Potassium 3.9 3.5 - 5.0 mmol/L 10/27/2024 10:42 AM EDT [facility] Chloride 106 98 - 107 mmol/L 10/27/2024 10:42 AM EDT [facility] Total CO2 26 22 - 29 mmol/L 10/27/2024 10:42 AM EDT [facility] Anion Gap 9 7 - 16 mmol/L 10/27/2024 10:42 AM EDT [facility] Calcium 9.3 8.8 - 10.4 mg/dL 10/27/2024 10:42 AM EDT [facility] Glucose Lvl 126(H) 70 - 99 mg/dL 10/27/2024 10:42 AM EDT [facility] BUN 17 8 - 23 mg/dL 10/27/2024 10:42 AM EDT [facility] Creatinine 0.83 0.51 - 1.30 mg/dL 10/27/2024 10:42 AM EDT [facility] eGFR (CKD-EPIcr 2020) 70 >=60 mL/min/1.7 3 m2 10/27/2024 10:42 AM EDT [facility] Comment:Estimated GFR was ca lculated using the CKD-EPIcr (2020) equation refit without race. The equation is recommended by the National Kidney Foundation - [place] [employer] of Nephrology Task Force. Blood VENOUS BLOOD / Unknown Venipuncture / Unknown 10/27/2024 10:02 AM EDT 10/27/2024 10:06 AM EDT us Sabina De Leon APRN CHEMISTRY ORDERABLES Final Result Performing Organization Address City/[facility]/ZIP Co de Phone Number [address] , [place] [phone] * (ABNORMAL) GLUCOSE METER POC (10/27/2024 9:53 AM EDT) [facility] Glucose Meter POC 108(H) 70 - 100 mg/dL 10/27/2024 9:54 AM EDT [facility] Sample Type Capillary 10/27/2024 9:54 AM EDT [facility] Patient Status Non-Critical Patient 10/27/2024 9:54 AM EDT [facility] Blood BLOOD SPECIMEN / Unknown 10/27/2024 9:53 AM EDT 10/27/2024 9:54 AM EDT us Charlotte Patel MD POINT OF CARE TEST ORDERABLES Fi nal Result Performing Organization Address City/[facility]/ZIP Co de Phone Number [facility] [address] [place] [id number] * EC ECHOCARDIOGRAM 2D M MODE COMPLETE W CONTRAST (10/27/2024 8:38 AM EDT) LV DIASTOLIC PLAX 3.83 cm PYRAMIS Ejection Fraction 65-70% PYRAMIS MITRAL REGURGITATION trace PYRAMIS Anatomical Region Laterality Modality Electrocardiogra phy 10/27/2024 7:56 AM EDT Impressions 10/27/2024 8:57 AM EDT Conclusions * Left ventricular chamber dimension is decreased. * Left ventricular function is hyperdynamic with an estimated ejection fraction of 65-70%. * There is severely increased left ventricular [...] paravalvular regurgitation of the prosthetic aortic valve. Narrative Procedure Note JakeMingo MD - 10/27/2024 IMPRESSION Conclusions * Left ventricular chamber dimension is decreased. * Left ventricular function is hyperdynamic with an estimated ejection fraction of 65-70%. * There is severely increased left ventricular [...] the prosthetic aortic valve is 10 mmHg, whichis within normal limits. * There is no transvalvular regurgitation of the prosthetic aorticvalve. * There is no paravalvular regurgitation of the prosthetic aorticvalve. us Sabina De Leon PORTER SAMPLE CASE IMG ECHO ORDERABLES Final R esult * ECG AND WAVEFORMS - TELEMETRY (10/27/2024 7:25 AM EDT) Only the most recent of3 resultswithin the time period is included. ECG INTERPRET NSR [facility] 10/27/2024 7:25 AM EDT Narrative [facility] - 10/27/2024 8:00 AM EDT ROUTINE/BUTTONHOLE MARKER NE 0.19 QRS 0.10 RR 0.76 QT 0.36 QTc 0.41 See Clinical Report link for waveform capture us Unknown Provider POINT OF CARE CARDIOLOGY Final Result [facility] [address] [place], [place] [id number] * EK EKG 12 LEAD (10/26/2024 11:09 AM EDT) Only the most recent of2 resultswithin the time period is included. Anatomical Region Laterality Modality Electrocardiogra phy 10/26/2024 11:1 6 AM EDT Impressions 10/26/2024 11:20 AM EDT [facility] Test Date: 2024-10-26 Pat Name: TAMMY CHANDLER Department: DEPID Room: [facility] Gender: Female Auto Damage Appraiser: Id : [id number] Requested By: SABINA Dougherty Order Number: [id number] Reading MD: Jj Paz MD Measurements Intervals [place] Rate: 72 P: 44 NE: 205 QRS: 27 QRSD: 98 T: 102 QT: 409 QTc: 448 Interpretive Statements SINUS RHYTHM SEPTAL MYOCARDIAL INFARCTION, OF INDETERMINATE AGE nssttwave changes Electronically Signed On 10-26-2024 11:20:09 EDT by Jj Paz MD Narrative Procedure Note Jj Paz MD - 10/26/2024 IMPRESSION [facility] Test Date: 2024-10-26 Pat Name: [facility] Department: DEPID Room: [facility] Gender: Female Auto Damage Appraiser: Id : [id number] Requested By: SABINA Dougherty Order Number: [id number] Reading MD: Jj Paz MD Measurements Intervals [place] Rate: 72 P: 44 NE: 205 QRS: 27 QRSD: 98 T: 102 QT: 409 QTc: 448 Interpretive Statements SINUS RHYTHM SEPTAL MYOCARDIAL INFARCTION, OF INDETERMINATE AGE nssttwave changes Electronically Signed On 10-26-2024 11:20:09 EDT by jJ Paz MD us Sabina Ladonna De Leon PORTER SAMPLE CASE IMG ECG ORDERABLES Final Re sult * EC ECHOCARDIOGRAM LIMITED (10/26/2024 10:52 AM EDT) Pathologist [facility] Ejection Fraction 60-65% PYRAMIS MITRAL REGURGITATION mild PYRAMIS AORTIC STENOSIS severe PYRAMIS Anatomical Region Laterality Modality Electrocardiogra phy 10/26/2024 9:29 AM EDT Impressions 10/27/2024 11:00 AM EDT Conclusions * Left ventricular chamber dimension is decreased. * Left ventricular function is normal with an estimated ejection fraction of 60-65%. * Right atrial chamber dimension is visually normal. * There is moderate mitral valve stenosis with a peak velocity of 214 cm/s and a mean gradient of 7 mmHg. Narrative Procedure Note Mingo Joseph MD - 10/27/2024 IMPRESSION Conclusions * Left ventricular chamber dimension is decreased. * Left ventricular function is normal with an estimated ejectionfraction of 60-65%. * Right atrial chamber dimension is visually normal. * There is moderate mitral valve stenosis with a peak velocity of 214cm/s and a mean gradient of 7 mmHg. Charlotte Patel MD IMG ECHO ORDERABLES Final Result * (ABNORMAL) ACTIVATED CLOTTING TIME + POC (10/26/2024 10:04 AM EDT) Pathologist [facility] ACT+ 383(H) 89 - 169 second(s) 10/26/2024 10:30 AM EDT [facility] Blood BLOOD SPECIMEN / Unknown 10/26/2024 10:04 AM EDT 10/26/2024 10:30 AM EDT us Charlotte Patel MD POINT OF CARE TEST ORDERABLES Fi nal Result Performing Organization Address [facility] Co de Phone Number [facility] [address] [place] [address] * INTRAOP AIRWAY PLACEMENT (10/26/2024 9:41 AM EDT) Narrative [facility] - 10/26/2024 9:41 AM EDT Gómez Mcgregor CRNA 10/26/2024 9:41 AM Intraop Airway Placement: Date/Time: 10/26/2024 9:41 AM Induction type: IV Airway type: Nasal cannula salter us Chip Prince MD NE ANESTHESIA Final Result Performing Organization Address [facility] de Phone Number [facility] [address] [place] [address] * BB HISTORY CHECK (10/26/2024 8:30 AM EDT) Only the most recent of2 resultswithin the time period is included. BB HISTORY CHECK (1) Previous History OK 10/26/2024 8:53 AM EDT [facility] Blood VENOUS BLOOD / Unknown Venipuncture / Unknown 10/26/2024 8:30 AM EDT 10/26/2024 8:39 AM EDT us Bobo Ellington MD BLOOD BANK ORDERABLES Final Re sult Performing Organization Address [facility] de Phone Number [facility] [address] [place] [address] * ABORH (10/26/2024 8:30 AM EDT) Only the most recent of2 resultswithin the time period is included. ABORH Int O POS 10/26/2024 9:2 6 AM EDT [facility] Blood VENOUS BLOOD / Unknown Venipuncture / Unknown 10/26/2024 8:30 AM EDT 10/26/2024 8:39 AM EDT us Bobo Ellington MD BLOOD BANK ORDERABLES Final Re sult Performing Organization Address City/[facility]/ZIP Co de Phone Number [facility] [address] [place] [address] * (ABNORMAL) NT PROBNP (10/26/2024 8:30 AM EDT) NT Pro-BNP 1,867(H) <=624 pg/mL 10/26/2024 9:00 AM EDT [facility] Blood VENOUS BLOOD / Unknown Venipuncture / Unknown 10/26/2024 8:30 AM EDT 10/26/2024 8:42 AM EDT Narrative [facility] - 10/26/2024 9:00 AM EDT An NT pro-BNP level less than 300 pg/mL in any patient, regardless of age, effectively rules out acute CHF with a 99% negative predictive value. Ingestion of marco doses of biotin (>5 mg/day) taken within 8 hours of drawing blood sample can interfere with this immunoassay test. us Sabina L De Leon PORTER SAMPLE CASE CHEMISTRY ORDERABLES Final Result Performing Organization Address [facility] Co de Phone Number [facility] [address] [place], [place] [id number] * SURGERY DATE (10/04/2024 10:16 AM EDT) Surgery Date (1) Complete 10/04/2024 11:24 AM EDT [facility] Blood VENOUS BLOOD / Unknown Venipuncture / Unknown 10/04/2024 10:16 AM EDT 10/04/2024 11:04 AM EDT us Sabina L De Loen PORTER SAMPLE CASE BLOOD BANK ORDERABLES Final Result Performing Organization Address City/[facility]/ZIP Co de Phone Number [facility] [address] [place] [id number] * PT / INR (10/04/2024 10:16 AM EDT) Pathologist [facility] PT 12.9 10.5 - 13.6 second(s) 10/04/2024 11:44 AM EDT [facility] [employer] [facility] INR 1.12 0.91 - 1.18 (ratio) 10/04/2024 11:44 AM EDT [facility] [employer] [facility] Comment: Level of Therapy Indications Target INR Range Standard Dose Treatment and prophylaxis of venous 2.0 - 3.0 thrombosis, pulmonary embolism High Dose High risk patients with mechanical 2.5 - 3.5 heart valves Blood VENOUS BLOOD / Unknown Venipuncture / Unknown 10/04/2024 10:16 AM EDT 10/04/2024 11:04 AM EDT us Sabina L De Leon PORTER SAMPLE CASE HEMATOLOGY ORDERABLES Final Result Performing Organization Address [facility] de Phone Number [facility] [employer] [facility] [address] [facility] [address], [place] [address] * ANTIBODY SCREEN IGG (10/04/2024 10:16 AM EDT) [facility] ABSC IgG Int Negative 10/04/2024 8:01 PM EDT [facility] Blood VENOUS BLOOD / Unknown Venipuncture / Unknown 10/04/2024 10:16 AM EDT 10/04/2024 11:04 AM EDT Sabina De Leon PORTER SAMPLE CASE BLOOD BANK ORDERABLES Final Result Performing Organization Address [facility] de Phone Number [facility] [address] [place] [address] * (ABNORMAL) HEMOGLOBIN A1C (10/04/2024 10:16 AM EDT) [facility] Hgb A1C 5.7(H) 4.2 - 5.6 % 10/04/2024 2:35 PM EDT [facility] [employer] Est. Avg Glucose 117 mg/dL 10/04/2024 2:35 PM EDT [facility] [employer], [facility] Blood VENOUS BLOOD / Unknown Venipuncture / Unknown 10/04/2024 10:16 AM EDT 10/04/2024 11:04 AM EDT Narrative [facility] - 10/04/2024 2:35 PM EDT REFERENCE RANGE: Normal: 4.0-5.6% Pre-diabetes: 5.7-6.4% Provisional diagnosis of diabetes: >6.4% Hgb F>10% and anything which shortens red cell survival, such as hemolytic anemia, or unstable hemoglobin variants such as HbSS, HbSC, or HbCC, will lower the HbA1c value associated with a given level of glycemic control. us Sabina De Leon PORTER SAMPLE CASE CHEMISTRY ORDERABLES Final Result [facility] [address] [facility] , [address] [place] [id number] * URINALYSIS REFLEX (10/04/2024 9:14 AM EDT) UA Color Light Yellow 10/04/2024 11:26 AM EDT [facility] UA Appear Clear Clear 10/04/2024 11:26 AM EDT [facility] UA Glucose Negative Negative mg/dL 10/04/2024 11:26 AM EDT [facility] UA Ketones Negative Negative mg/dL 10/04/2024 11:26 AM EDT [facility] UA Blood Negative Negative 10/04/2024 11:26 AM EDT [facility] UA pH 6.0 5.0 - 8.0 pH 10/04/2024 11:26 AM EDT [facility] UA Protein Negative Negative mg/dL 10/04/2024 11:26 AM EDT [facility] UA Urobilinogen Normal <=1 mg/dL 11:26 AM EDT [facility] UA Bili Negative Negative 10/04/2024 11:26 AM EDT [facility] UA Nitrite Negative Negative 10/04/2024 11:26 AM EDT [facility] UA Leuk Est Negative Negative 10/04/2024 11:26 AM EDT [facility] UA Spec Grav 1.020 1.001 - 1.035 no units 10/04/2024 11:26 AM EDT [facility] Comment:Reference range kimberley d for random specimens only. Urine STRUCTURE OF URINARY TRACT PROPER / Unknown 10/04/2024 9:14 AM EDT 10/04/2024 11:08 AM EDT us Sabina L De Leon PORTER SAMPLE CASE URINE ORDERABLES Final Resu lt Performing Organization Address [facility] Co de Phone Number [facility] [address] [facility] [address], [place] [address] * EXTRA RANDOLPH URINE CX (10/04/2024 9:14 AM EDT) Urine STRUCTURE OF URINARY TRACT PROPER / Unknown 10/04/2024 9:14 AM EDT 10/04/2024 11:08 AM EDT us Sabina L De Leon PORTER SAMPLE CASE MICROBIOLOGY - GENERAL ORDE RABLES Final Result Performing Organization Address [facility] [place] [address] * XR CHEST PA AND LATERAL (10/04/2024 9:14 AM EDT) Anatomical Region Laterality Modality Chest Radiographic Marii ging 10/04/2024 9:14 AM EDT Impressions 10/04/2024 9:21 AM EDT No acute intrathoracic process - Note: Radiology results need to be interpreted within a comprehensive clinical context. If you have questions about the radiology report, please contact the office of the ordering clinician. Narrative 10/04/2024 9:21 AM EDT PA AND LATERAL CHEST X-RAY, 10/04/2024 9:14 AM CLINICAL HISTORY: -pre-procedure transcatheter aortic valve replacement COMPARISON: No comparison chest studies. PROCEDURE COMMENTS: Frontal and lateral views of the chest. FINDINGS: No visualized cardiac enlargement with normal pulmonary vascularity. No evidence of acute pulmonary edema. The lungs are clear. No pleural effusions. Procedure Note Ashish Patel DO - 10/04/2024 PA AND LATERAL CHEST X-RAY, 10/04/2024 9:14 AM CLINICAL HISTORY: -pre-procedure transcatheter aortic valve replacement COMPARISON: No comparison chest studies. PROCEDURE COMMENTS: Frontal and lateral views of the chest. FINDINGS: No visualized cardiac enlargement with normal pulmonary vascularity. Noevidence of acute pulmonary edema. The lungs are clear. No pleural effusions. IMPRESSION: No acute intrathoracic process - Note: Radiology results need to be interpreted within a comprehensiveclinical context. If you have questions about the radiology report, please contactthe office of the ordering clinician. Sabina De Leon PORTER SAMPLE CASE IMG DIAGNOSTIC IMAGING ORDE SEGUN Final Result from Last 3 Months Insurance [employer] [facility] [place] [address] [employer] [place] [place] PART A AND B [employer] [facility] [place] [address] [employer] [place]MO MR [employer] [place] PART A [place] B Advance Directives For more information, please contact: [phone] * Full Code (Latest Code Status on File) Date Activated Date Inactivated Comments 10/26/2024 12:26 PM 10/27/2024 5:26 PM Care Teams Physicist [employer] [place] Relationship Specialty Start Date End Date Rakesh Carr MD [address] [place] [phone] PCP - General Family Medicine 03/16/12
--- OUTSIDE RECORDS SUMMARY | 2024-12-30 14:32 | XMS_ITS | Clinical Summary ---
Author Organization [facility] Address [address] [place] [address] Care Team Providers Care Architectural Associate Name Role Phone Rakesh Carr MD Primary Care Provider [phone] Family History Medical History Relation Name Comments Cardiac disorder Mother Hypertension Mother Other cancer Mother Cardiac disorder Other 1 Hypertension Other 2 Other cancer Other 3 Relation Name Status Comments Mother Other 1 Other 2 Other 3 Social History Tobacco Use Types Packs/Day Years Used Date Smoking Tobacco: Never Comments Unknown Sex and Gender Information Value Date Recorded Sex Assigned at Not on file Legal Sex Female 7:08 PM EDT Gender Identity Not on file Sexual Orientation Not on file Last Filed Vital Signs Vital Sign Reading Time Taken Comments Blood Pressure 130/71 10/31/2018 11:59 AM EDT Pulse - - Temperature - - Respiratory Rate - - Oxygen Saturation - - Inhaled Oxygen Concentration - - Weight 89 kg (196 lb 3.4 oz) 10/31/2018 11:59 AM EDT Height 162.6 cm (5' 4 ) 10/31/2018 11:59 AM EDT Body Mass Index 33.68 10/31/2018 11:59 AM EDT Plan of Treatment Not on file Care Teams Architectural Associate Relationship Specialty Start Date End Date Rakesh Carr MD [address] [place] [id number] PCP - General 10/25/20
--- OUTSIDE RECORDS SUMMARY | 2024-12-30 14:32 | XMS_ITS | Continuity of Care Document ---
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 cancer [email or web address] Not available 2018 14:34:31 Sister Family history of malignant neoplasm of lung 61 [email or web address] Not available 2018 14:34:46 Sister Cerebrovascu lar accident 61 [email or web address] Not available 02/2019 14:35:04 Father Myocardial infarction 58 [email or web address] Not available 02/20 14:34:00 Mother Natural 81 [email or web address] Not available 2018 14:34:25 Medical History Condition Response Anxiety Disorder Y Acid Reflux (GERD) Y Hyperlipidemia Y Neuropathy Y Hypertension Y Rheumatoid arthritis Y Gynecological History Statement/Question Response Menses Monthly N Date of Last Pap Smear 06/14/2008 Date of Last Colonoscopy Date of Last Mammogram 06/14/2012 Most Recent Bone Density Obstetrics History GPAL:G 3 P 0 0 0 2 Type Value Living 2 Total 3 Immunizations Vaccine Type Date Status Note Provider Nam e and Address Organization Details Recorded Time Influenza, high-dose, quadrivalent, PF 2 completed Wilma rivas, [place] - [facility] 05/23/2024 10:25:18 Influenza, split virus, quadrivalent, preservative 6 completed Not Available [facility] 07/01/2019 03:54:18 Influenza, high-dose, trivalent, PF 7 completed Not Available [facility] 07/01/2019 03:54:42 influenza, unspecified formulation 4 completed Not Available [facility] 07/15/2019 02:21:29 influenza, unspecified formulation 6 completed Not Available [facility] 07/15/2019 02:21:29 zoster live 5 completed Not Available [facility] 03/22/2016 13:14:00 pneumococcal polysaccharide PPV23 4 completed Not Available [facility] 07/15/2019 02:21:58 tetanus toxoid, unspecified formulation 7 completed Fanny Adry null, [place] - [facility] 02/20/2019 14:49:13 tetanus toxoid, unspecified formulation 7 completed Fanny Adry null, [place] - [facility] 02/20/2019 14:49:29 Influenza, high-dose, trivalent, PF 4 completed Lindsey García, [employer] [address], [place], [address], [place] [facility] 05/23/2024 15:08:41 Influenza, split virus, quadrivalent, preservative 8 completed Not Available [facility] 07/01/2019 03:55:22 zoster recombinant 0 completed Fanny Adry null, [place] - [facility] 10/09/2020 11:19:40 zoster recombinant 1 completed Crystal Di null, [place] - [facility] 02/22/2024 10:18:20 Tdap 9 completed Not Available [facility] 07/01/2019 03:55:53 Pneumococcal conjugate PCV 13 9 completed Not Available [facility] 07/01/2019 03:56:04 Influenza, high-dose, trivalent, PF 9 completed Not Available [facility] 07/01/2019 03:56:04 zoster recombinant 1 completed Crystal Di null, [place] - [facility] 02/22/2024 10:18:20 Influenza, high-dose, quadrivalent, PF 1 completed Crystal Di [place], [place] [facility] 02/22/2024 10:18:20 Influenza, high-dose, quadrivalent, PF 0 completed Crystal Di null, [place] - [facility] 02/22/2024 10:18:20 Td (adult), 2 Lf tetanus toxoid, preservative free, adsorbed 7 completed Crystal Di null, [place] - [facility] 02/22/2024 10:18:20 Td (adult), 2 Lf tetanus toxoid, preservative free, adsorbed 7 completed Crystal Di null, [place] - [facility] 02/22/2024 10:18:20 Past Encounters Encounter ID Performer Location Encounter Start Date Encounter Closed Date Diagnosis/Indication Diagnosis SNOMED-CT Code Diagnosis ICD10 Code Diagnosis Note [id number] Lindsey García APRN [facility] [address] [place] [id number] 11/22/2024 15:01:44 11/22/2024 16:15:48 Neuropathy 911139681 G62.9 Acute cellulitis 7196983 009 L03.90 Acute confusion 48272256 0 R41.0 Essential hypertension 89200415 I10 Health Concerns Section Related Observation LastModified by Organization Detai ls LastModified Time None Recorded Concern Status LastModified by Organization Details LastModified Time None Recorded Payers Encounter Date Sequence Insurance Name Policy Number Policy Estrada Covered Member ID Estrada Member ID Guarantor Name 11/22/2024 2 [employer] [facility] (MEDICAID HMO) Mindy Chandler [id number] Mindy Chandler 11/22/2024 1 [employer] (MEDICARE REPLACEMENT/ ADVANTAGE - PPO) Mindy Chandler [id number] Mindy Chandler Notes Date Note Type Note Provider Name and Address Organization Details Recorded Time 11/22/2024 text/html Presents for catalina rodriguez - daughter is presentYesterday was sitting on bed and slid to floor unable to get up by self. Crawled on floor until daughter found her.Did receive abrasion to elbowAlso reports some edema and redness to left foot for past couple of daysNo chest pain, shortness of breath, dizziness, lightheadedness, syncope, palpitations or edema. No fever, chills or cough.Compliant with medications Lindsey García APRN [address], [place], [address], [place] - [facility] 11/26/2024 21:01:07 OBGyn Episode No OBEpisode recorded.
--- OUTSIDE RECORDS SUMMARY | 2024-12-30 14:32 | XMS_ITS | Clinical Summary ---
Author Organization [facility] Address [address], [address] [place] [address] Care Team Providers Care Geographic Information System Analyst Name Role Phone Lilly Zimmerman MD, Harold Primary Care Provider Kylie escalante Allergies Active Allergy Reactions Criticality Noted Date Comments Penicillins Anaphylaxis High 06/15/2018 Medications aspirin 81 MG tablet Take 81 mg by mouth daily Active amitriptyline (ELAVIL) 100 MG tablet Take 100 mg by mouth nightly Active fenofibrate (TRICOR) 145 MG tablet Take 145 mg by mouth daily Active omeprazole (PRILOSEC) 20 MG delayed release capsule Take 20 mg by mouth daily Active fluticasone (FLONASE) 50 MCG/ACT nasal spray 1 spray by Each Nare route daily Active diphenhydrAMINE- APAP, sleep, (TYLENOL PM EXTRA STRENGTH) 25-500 MG tablet Take 1 tablet by mouth nightly as needed for Sleep Active gabapentin (NEURONTIN) 100 MG capsuleIndicatio ns:Thoracic compression fracture, closed, initial encounter ([facility]) Take 1 capsule by mouth 3 times daily for 30 days.. 90 capsule 06/23/[address] 1 patch onto the skin daily 12 patch 06/24/2018 Active lisinopril (PRINIVIL;ZESTRI L) 20 MG tablet Take 1.5 tablets by mouth daily 45 tablet 06/23/2018 Active Active Problems Problem Noted Date Diagnosed Date Thoracic compression fracture, closed, initial e ncounter 06/15/2018 Immunizations Immunization Administration Dates Next Due Influenza Virus Vaccine 04/14/2018 Social History Tobacco Use Types Packs/Day Years Used Date Smoking Tobacco: Never Smokeless Tobacco: Never Comments No Sex and Gender Information Value Date Recorded Sex Assigned at Not on file Legal Sex Female 12:28 PM EST Gender Identity Not on file Sexual Orientation Not on file Last Filed Vital Signs Vital Sign Reading Time Taken Comments Blood Pressure 134/74 06/24/2018 8:00 AM EST Pulse 90 06/24/2018 8:00 AM EST Temperature 36.6 C (97.9 F) 06/24/2018 8:00 AM EST Respiratory Rate 16 06/24/2018 8:00 AM EST Oxygen Saturation 93% 06/24/2018 8:00 AM EST Inhaled Oxygen Concentration - - Weight 89.6 kg (197 lb 8.5 oz) 06/22/2018 6:56 A M EST Height 167.6 cm (5' 6 ) 06/15/2018 8:15 PM EST Body Mass Index 31.88 06/15/2018 8:15 PM EST Plan of Treatment Not on file Insurance [place] [id number] [place] [address] Advance Directives * Full Code (Latest Code Status on File) Date Activated Date Inactivated Comments 06/15/2018 8:57 PM 06/24/2018 6:50 PM Care Teams Geographic Information System Analyst Relationship Specialty Start Date End Date Rakesh Carr MD [address] [place] [address] PCP - General Family Medicine 06/17/18
--- OUTSIDE RECORDS SUMMARY | 2024-12-30 14:32 | XMS_ITS | Encounter Summary ---
Author Organization [facility] [place] [address] Care Team Providers Care Glass Artist Name Role Phone Lilly Zimmerman MD, Rakesh Primary Care Provider + Reason for Visit * Reason Comments Medication Refill Encounter Details Date Type Department Care Team (Late Contact Info) Description 11/14/2024 Refill Structural Hrt/Valve [address] [place] [address] Keanu Vincent MD [address] [place] [address] Medication Refill Social History Tobacco Use Types Packs/Day Years Used Date Smoking Tobacco: Never Smokeless Tobacco: Never Alcohol Use Standard Drinks/Week Comments Never 0 (1 standard drink = 0.6 oz pur e alcohol) [facility] Utilities Answer Date Recorded In the past 12 months has [employer], gas, oil, or water [employer] threatened to shut off services in your home? No 10/26/2024 Overall Financial Resource Strain (CARDIA) Answe r Date Recorded How hard is it for you to pa y for the very basics like food, housing, medical care, and heating? Not very hard 10/26/2024 PHQ-2 Answer Date Recorded PHQ-2 Total Score 0 10/26/2024 [facility] - Occupational Stress [...] money to get more. Never true 10/26/2024 [facility] IP Transportation Answer D ate Recorded In [...] on file documented as of this encounter Ordered Prescriptions Prescription Sig Dispense Quantity Refills Last Filled Start Date End Date ticagrelor (BRILINTA) 90 mg Oral TabletIndications:N onrheumatic aortic valve stenosis TAKE 1 TABLET BY MOUTH 2 TIMES DAILY. 60 Tablet 2 11/15/2024 documented in this encounter Plan of Treatment Upcoming Encounters Date Type Department Care Team (Late st Contact Info) Description 03/29/2025 2:30 PM EDT Office Visit [facility] [address] [place] [address] Priscilla Mejía, AUTOMATION DEVELOPER [address] [place] [address] 11/06/2025 11:45 AM EDT Appointment [facility] [address] [place] [address] Charlotte Patel MD [address] [place] [address] 11/09/2025 11:00 AM EDT Office Visit Structural Hrt/Valve [address] [place] [id number] documented as of this encounter Goals Goal Patient Goal Type Associated Problems Recent Progress Patient-Stated? Author Blood Pressure < 140/90 Blood Pressure 153/48(2024 8:40 AM EDT) No Suma Justice MA Maintain a healthy diet, exercise regularly and maintain an ideal body weight General No Ghazal Lu RMA documented as of this encounter Visit Diagnoses Diagnosis Nonrheumatic aortic valve stenosis Aortic valve disorders documented in this encounter Discontinued Medications Medication Sig Discontinue Reason Start Date End Da te ticagrelor (BRILINTA) 90 mg Oral TabletIndications:Nonrhe umatic aortic valve stenosis Take 1 Tablet by mouth 2 times daily. 10/12/2024 11/15/2024 documented as of this encounter Care Teams Glass Artist Relationship Specialty Start Date End Date Rakesh Carr MD [address] [place] [phone] PCP - General Family Medicine 03/16/12 documented as of this encounter
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
--- OUTSIDE RECORDS SUMMARY | 2024-12-30 14:33 | XMS_ITS | Data Portability ---
Author Organization [facility] Address [address] [place] [address] Assessment No assessment recorded. Plan of Treatment Reminders Order Date Submit Date Provider Last Modified By Organization Details Last Modified Time Details Appointments None recorded. Lab CMP, serum or plasma 2024 025 SHEILA [facility], [address], [address], [place], [address], 5 08:37:56 CBC w/ auto diff 2024 025 SHEILA [facility], [address], [address], [place], [address], 5 08:37:55 TSH + free T4, serum 2024 025 SHEILA [facility], [address], [address], [place], [address], 5 08:37:54 magnesium, serum or plasma 2024 025 SHEILA [facility], [address], [address], [place], [address], 5 08:37:57 drug screen, 14 drugs (detectimed ), urine 2024 025 SHEILA [facility], [address], [address], [place], [address], 5 20:36:15 vitamin D, 25-hydroxy, total, serum 2023 024 SHEILA [facility], [address], [address], [place], [address], 4 18:35:49 cobalamin and folate panel, serum 2023 024 SHEILA [facility], [address], [address], [place], [address], 4 18:35:47 HbA1c (hemoglobin A1c), blood 2023 024 SHEILA [facility], [address], [place] [address], [place], [address], 4 18:35:48 CMP, serum or plasma 2023 024 SHEILA [facility], [address], [address], [place], [address], 4 18:35:44 CBC w/ auto diff 2023 024 SHEILA [facility], [address], [address], [place], [address], 4 18:35:43 lipid panel, serum 2023 024 SHEILA [facility], [address], [address], [place], [address], 4 18:35:46 gabapentin, serum 2023 024 SHEILA [facility], [address], [address], [place], [address], 4 18:35:50 drugs of abuse panel, blood 2023 024 SHEILA [facility], [address], [address], [place], [address], 4 18:35:45 thyroid panel, serum 2023 024 SHEILA [facility], [address], [address], [place], [address], 4 18:35:47 drug screen, 14 drugs (detectimed ), urine 2023 024 SHEILA [facility], [address], [address], [place], [address], 4 16:36:53 Referral None recorded. Procedures None recorded. Surgeries None recorded. Imaging US, echocardiog viridiana, transthorac ic, complete - significant murmur with no prior evaluation [employer] approval [id number] 02/23/24 thru 04/23/242023 024 SHEILA [facility] ([facility]), [address] [place] [address], [address], 4 11:01:08 Medication Orders metoprolol succinate ER 25 mg tablet,exte nded release 24 hr 2024 025 [facility], [address] [place] [address], [address], 5 16:02:10 cephalexin 500 mg capsule 2024 025 [facility] [id number], [address] [place] [address], [address], 5 15:40:55 fluticasone propionate 50 mcg/actuati on nasal spray,suspe nsion 2024 025 [facility], [address] [place] [address], [address], 5 15:33:24 ergocalcife rol (vitamin D2) 1,250 mcg (50,000 unit) capsule 2024 025 [facility], [address] [place] [address], [address], 5 15:33:19 gabapentin 100 mg capsule 2024 025 [facility], [address] [place] [address], [address], 5 15:33:29 amitriptyli ne 100 mg tablet 2024 025 [facility], [address] [place] [address], [address], 5 15:33:21 amitriptyli ne 50 mg tablet 2024 025 [facility], [address] [place] [address], [address], 5 15:33:26 gabapentin 100 mg capsule 2023 024 [facility], [address] [place] [address], [address], 4 10:55:06 ergocalcife rol (vitamin D2) 1,250 mcg (50,000 unit) capsule [address] [facility], [address] [place] [address], [address], 4 18:16:12 gabapentin 100 mg capsule 2023 024 [facility], [address] [place] [address], [address], 4 11:00:10 Patient TargetsNo targets recorded. Patient Instructions Encounter Date Encounter Id Patient Instructions Last Modified By Organization Details Last Modified Time 02/22/2024 [id number] learning about healthy weight Not available 02/22/2024 10:39:15 body mass index: care instructions Not available 02/22/2024 10:39:15 UDS obtained CSA reviewed and updated PDMR reviewed - appropriate Discussed following low sodium diet (2 grams per day) Advised to take medication as directed To call office for questions, concerns or issues Not available 02/22/2024 18:19:34 05/23/2024 [id number] learning about healthy weight Not available 05/23/2024 10:53:39 body mass index: care instructions Not available 05/23/2024 10:53:38 CSA and PDMR reviewed - appropriate Advised to take medication as directed Will call with results of labs once available Encouraged to follow heart healthy lifestyle - low fat diet and aim for 30 minutes per day of physical exercise. To call office for questions, concerns or issues Not available 05/23/2024 15:09:41 09/20/2024 [id number] learning about healthy weight Not available 09/20/2024 15:31:45 body mass index: care instructions Not available 09/20/2024 15:31:45 UDS obtained CSA and PDMR reviewed - appropriate Advised to take medication as directed To call office for questions, concerns or issues Not available 09/20/2024 15:34:21 11/22/2024 [id number] Advised to take medication as directed Tylenol of pain or fever Will call with results of labs once available Early follow up To call office for any questions, concerns or issues Not available 11/26/2024 21:00:58 12/06/2024 [id number] learning about healthy weight Not available 12/06/2024 16:14:48 body mass index: care instructions Not available 12/06/2024 16:14:48 Discussed mcc effects of uncontrolled hypertension on micro and [...] 12/06/2024 16:06:38 Reason for Referral None Reported. Results Created Date Observation Date Name Description Value Unit Range Abnormal Flag Note LastModifiedBy Organization Detail LastModifiedTime 02/22/20 24 02/29/2024 COMPL IANCE DRUG LEATHA SIS, UR summary report (summary) FINAL ===== ===== ===== ===== ===== ===== ===== ===== ===== ===== ===== ===== ===== === TOXAS SURE COMP DRUG LEATHA SIS,U R ===== ===== ===== ===== ===== ===== ===== ===== ===== ===== ===== ===== ===== === Test Resul t Flag Units Drug Prese nt Gabap entin PRESE NT Amitr iptyl ine PRESE NT Nortr iptyl ine PRESE NT Nortr iptyl ine may be admin ister ed as a presc ripti on drug; it is also an expec lennie metab olite of amitr iptyl ine. ===== ===== ===== ===== ===== ===== ===== ===== ===== ===== ===== ===== ===== === Test Resul t Flag Units Ref Range Creat inine 61 mg/dL >=20 ===== ===== ===== ===== ===== ===== ===== ===== ===== ===== ===== ===== ===== === Decla red Medic ation s: Medic ation list was not provi ded. ===== ===== ===== ===== ===== ===== ===== ===== ===== ===== ===== ===== ===== === For clini radha consu ltati on, pleas e call . ===== ===== ===== ===== ===== ===== ===== ===== ===== ===== ===== ===== ===== === Not Available [facility] ([facility]) [address] [facility], [place], [address], 02/29/2024 16:36:53 02/22/20 24 02/29/2024 COMPL IANCE DRUG LEATHA SIS, UR pdf . Not Available [facility] ([facility]) [address] [facility] [place], [address], 02/29/2024 16:36:53 05/23/20 24 05/24/2024 CBC WITH DIFFE RENTI AL/PL ATELE T WBC 5.2 x10e3 /uL 3.4-10 .8 normal Not Available [facility] ([facility]) [address] [facility] [place], [address], 05/26/2024 18:35:43 05/23/20 24 05/24/2024 CBC WITH DIFFE RENTI AL/PL ATELE T RBC 4.12 x10e6 /uL 3.77-5 .28 normal Not Available [facility] ([facility]) [address] [place], [address], 05/26/2024 18:35:43 05/23/20 24 05/24/2024 CBC WITH DIFFE RENTI AL/PL ATELE T hemoglobin 12.8 g/dL 11.1-1 5.9 normal Not Available [facility] ([facility]) [address] [facility] [place], [address], 05/26/2024 18:35:43 05/23/20 24 05/24/2024 CBC WITH DIFFE RENTI AL/PL ATELE T hematocrit 39.0 % 34.0-4 6.6 normal Not Available [facility] ([facility]) [address] [place], [address], 05/26/2024 18:35:43 05/23/20 24 05/24/2024 CBC WITH DIFFE RENTI AL/PL ATELE T MCV 95 fL 79-97 normal Not Available [facility] ([facility]) [address] [facility], [place], [address], 05/26/2024 18:35:43 05/23/20 24 05/24/2024 CBC WITH DIFFE RENTI AL/PL ATELE T MCH 31.1 pg 26.6-3 3.0 normal Not Available [facility] ([facility]) [address] [facility], [place], [address], 05/26/2024 18:35:43 05/23/20 24 05/24/2024 CBC WITH DIFFE RENTI AL/PL ATELE T MCHC 32.8 g/dL 31.5-3 5.7 normal Not Available [facility] ([facility]) [address] [facility], [place], [address], 05/26/2024 18:35:43 05/23/20 24 05/24/2024 CBC WITH DIFFE RENTI AL/PL ATELE T RDW 13.1 % 11.7-1 5.4 Not Available [facility] ([facility]) [address] [facility], [place], [address], 05/26/2024 18:35:43 05/23/20 24 05/24/2024 CBC WITH DIFFE RENTI AL/PL ATELE T platelets 231 x10e3 /uL 150-45 0 normal Not Available [facility] ([facility]) [address] [place], [address], 05/26/2024 18:35:43 05/23/20 24 05/24/2024 CBC WITH DIFFE RENTI AL/PL ATELE T neutrophils 48 % not estab. normal Not Available [facility] ([facility]) [address] [place], [address], 05/26/2024 18:35:43 05/23/20 24 05/24/2024 CBC WITH DIFFE RENTI AL/PL ATELE T lymphs 40 % not estab. normal Not Available [facility] ([facility]) [address] [facility], [place], [address], 05/26/2024 18:35:43 05/23/20 24 05/24/2024 CBC WITH DIFFE RENTI AL/PL ATELE T monocytes 8 % not estab. normal Not Available [facility] ([facility]) [address] [facility], [place], [address], 05/26/2024 18:35:43 05/23/20 24 05/24/2024 CBC WITH DIFFE RENTI AL/PL ATELE T eos 2 % not estab. normal Not Available [facility] ([facility]) [address] [facility], [place], [address], 05/26/2024 18:35:43 05/23/20 24 05/24/2024 CBC WITH DIFFE RENTI AL/PL ATELE T basos 1 % not estab. normal Not Available [facility] ([facility]) [address] [place], [address], 05/26/2024 18:35:43 05/23/20 24 05/24/2024 CBC WITH DIFFE RENTI AL/PL ATELE T immature cells BOAT OFFICER Not Available [facility] ([facility]) [address] [facility], [place], [address], 05/26/2024 18:35:43 05/23/20 24 05/24/2024 CBC WITH DIFFE RENTI AL/PL ATELE T neutrophils (absolute) 2.6 x10e3 /uL 1.4-7. 0 normal Not Available [facility] ([facility]) [address] [facility], [place], [address], 05/26/2024 18:35:43 05/23/20 24 05/24/2024 CBC WITH DIFFE RENTI AL/PL ATELE T lymphs (absolute) 2.1 x10e3 /uL 0.7-3. 1 normal Not Available [facility] ([facility]) [address] [facility], [place], [address], 05/26/2024 18:35:43 05/23/20 24 05/24/2024 CBC WITH DIFFE RENTI AL/PL ATELE T monocytes(ab solute) 0.4 x10e3 /uL 0.1-0. 9 normal Not Available [facility] ([facility]) [address] [facility], [place], [address], 05/26/2024 18:35:43 05/23/20 24 05/24/2024 CBC WITH DIFFE RENTI AL/PL ATELE T eos (absolute) 0.1 x10e3 /uL 0.0-0. 4 normal Not Available [facility] ([facility]) [address] [facility], [place], [address], 05/26/2024 18:35:43 05/23/20 24 05/24/2024 CBC WITH DIFFE RENTI AL/PL ATELE T baso (absolute) 0.0 x10e3 /uL 0.0-0. 2 normal Not Available [facility] ([facility]) [address] [facility], [place], [address], 05/26/2024 18:35:43 05/23/20 24 05/24/2024 CBC WITH DIFFE RENTI AL/PL ATELE T immature granulocytes 1 % not estab. Not Available [facility] ([facility]) [address] [place], [address], 05/26/2024 18:35:43 05/23/20 24 05/24/2024 CBC WITH DIFFE RENTI AL/PL ATELE T immature grans (abs) 0.0 x10e3 /uL 0.0-0. 1 Not Available [facility] ([facility]) [address] [facility], [place], [address], 05/26/2024 18:35:43 05/23/20 24 05/24/2024 CBC WITH DIFFE RENTI AL/PL ATELE T NRBC BOAT OFFICER Not Available [facility] ([facility]) [address] [facility], [place], [address], 05/26/2024 18:35:43 05/23/20 24 05/24/2024 CBC WITH DIFFE RENTI AL/PL ATELE T hematology comments: BOAT OFFICER Not Available [facility] ([facility]) [address] [facility], [place], [address], 05/26/2024 18:35:43 05/23/20 24 05/24/2024 COMP. METAB OLIC PANEL (14) glucose 90 mg/dL 70-99 normal Not Available [facility] ([facility]) [address] [facility], [place], [address], 05/26/2024 18:35:44 05/23/20 24 05/24/2024 COMP. METAB OLIC PANEL (14) BUN 28 mg/dL 8-27 above high normal Not Available [facility] ([facility]) [address] [facility], [place], [address], 05/26/2024 18:35:44 05/23/20 24 05/24/2024 COMP. METAB OLIC PANEL (14) creatinine 0.67 mg/dL 0.57-1 .00 normal Not Available [facility] ([facility]) [address] [facility], [place], [address], 05/26/2024 18:35:44 05/23/20 24 05/24/2024 COMP. METAB OLIC PANEL (14) eGFR 87 mL/mi n/1.7 3 >59 normal Not Available [facility] ([facility]) [address] [facility], [place], [address], 05/26/2024 18:35:44 05/23/20 24 05/24/2024 COMP. METAB OLIC PANEL (14) BUN/creatini ne ratio 42 12-28 above high normal Not Available [facility] ([facility]) [address] [place], [address], 05/26/2024 18:35:44 05/23/20 24 05/24/2024 COMP. METAB OLIC PANEL (14) sodium 141 mmol/ L 134-14 4 normal Not Available [facility] ([facility]) [address] [place], [address], 05/26/2024 18:35:44 05/23/20 24 05/24/2024 COMP. METAB OLIC PANEL (14) potassium 4.8 mmol/ L 3.5-5. 2 normal Not Available [facility] ([facility]) [address] [facility] [place], [address], 05/26/2024 18:35:44 05/23/20 24 05/24/2024 COMP. METAB OLIC PANEL (14) chloride 103 mmol/ L 96-106 normal Not Available [facility] ([facility]) [address] [facility] [place], [address], 05/26/2024 18:35:44 05/23/20 24 05/24/2024 COMP. METAB OLIC PANEL (14) carbon dioxide, total 21 mmol/ L 20-29 normal Not Available [facility] ([facility]) [address] [facility] [place], [address], 05/26/2024 18:35:44 05/23/20 24 05/24/2024 COMP. METAB OLIC PANEL (14) calcium 9.5 mg/dL 8.7-10 .3 normal Not Available [facility] ([facility]) [address] [facility] [place], [address], 05/26/2024 18:35:44 05/23/20 24 05/24/2024 COMP. METAB OLIC PANEL (14) protein, total 6.8 g/dL 6.0-8. 5 normal Not Available [facility] ([facility]) [address] [facility] [place], [address], 05/26/2024 18:35:44 05/23/20 24 05/24/2024 COMP. METAB OLIC PANEL (14) albumin 4.3 g/dL 3.7-4. 7 normal Not Available [facility] ([facility]) [address] [place], [address], 05/26/2024 18:35:44 05/23/20 24 05/24/2024 COMP. METAB OLIC PANEL (14) globulin, total 2.5 g/dL 1.5-4. 5 Not Available [facility] ([facility]) [address] [place], [address], 05/26/2024 18:35:44 05/23/20 24 05/24/2024 COMP. METAB OLIC PANEL (14) bilirubin, total 0.4 mg/dL 0.0-1. 2 normal Not Available [facility] ([facility]) [address] [place], [address], 05/26/2024 18:35:44 05/23/20 24 05/24/2024 COMP. METAB OLIC PANEL (14) alkaline phosphatase 53 IU/L 44-121 normal Not Available [facility] ([facility]) [address] [place], [address], 05/26/2024 18:35:44 05/23/20 24 05/24/2024 COMP. METAB OLIC PANEL (14) AST (SGOT) 31 IU/L 0-40 normal Not Available [facility] ([facility]) [address] [place], [address], 05/26/2024 18:35:44 05/23/20 24 05/24/2024 COMP. METAB OLIC PANEL (14) ALT (SGPT) 23 IU/L 0-32 normal Not Available [facility] ([facility]) [address] [place], [address], 05/26/2024 18:35:44 05/23/20 24 05/26/2024 DRUG SCREE N 13 W/CON F, SERUM amphetamines , ia Negati ve NG/mL cutoff :50 Not Available [facility] ([facility]) [address] [facility], [place], [address], 05/26/2024 18:35:45 05/23/20 24 05/26/2024 DRUG SCREE N 13 W/CON F, SERUM barbiturates , ia Negati ve ug/mL cutoff :0.1 Not Available [facility] ([facility]) [address] [place], [address], 05/26/2024 18:35:45 05/23/20 24 05/26/2024 DRUG SCREE N 13 W/CON F, SERUM benzodiazepi yamila, ia Negati ve NG/mL cutoff :20 Not Available [facility] ([facility]) [address] [facility], [place], [address], 05/26/2024 18:35:45 05/23/20 24 05/26/2024 DRUG SCREE N 13 W/CON F, SERUM cocaine / metabolite, ia Negati ve NG/mL cutoff :25 Not Available [facility] ([facility]) [address] [place] [address], [address], 05/26/2024 18:35:45 05/23/20 24 05/26/2024 DRUG SCREE N 13 W/CON F, SERUM phencyclidin e, ia Negati ve NG/mL cutoff :8 Not Available [facility] ([facility]) [address] [place] [address], [address], 05/26/2024 18:35:45 05/23/20 24 05/26/2024 DRUG SCREE N 13 W/CON F, SERUM THC(marijuan a) metabolite, ia Negati ve NG/mL cutoff :5 Not Available [facility] ([facility]) [address] [place] [address], [address], 05/26/2024 18:35:45 05/23/20 24 05/26/2024 DRUG SCREE N 13 W/CON F, SERUM opiates, ia Negati ve NG/mL cutoff :5 Not Available [facility] ([facility]) [address] [facility], [place], [address], 05/26/2024 18:35:45 05/23/20 24 05/26/2024 DRUG SCREE N 13 W/CON F, SERUM oxycodones, ia Negati ve NG/mL cutoff :5 Not Available [facility] ([facility]) [address] [place], [address], 05/26/2024 18:35:45 05/23/20 24 05/26/2024 DRUG SCREE N 13 W/CON F, SERUM methadone, ia Negati ve NG/mL cutoff :25 Not Available [facility] ([facility]) [address] [place], [address], 05/26/2024 18:35:45 05/23/20 24 05/26/2024 DRUG SCREE N 13 W/CON F, SERUM fentanyl, ia Negati ve NG/mL cutoff :1.0 Not Available [facility] ([facility]) [address] [place], [address], 05/26/2024 18:35:45 05/23/20 24 05/26/2024 DRUG SCREE N 13 W/CON F, SERUM propoxyphene , ia Negati ve NG/mL cutoff :50 Not Available [facility] ([facility]) [address] [place], [address], 05/26/2024 18:35:45 05/23/20 24 05/26/2024 DRUG SCREE N 13 W/CON F, SERUM meperidine, ia Negati ve NG/mL cutoff :100 Not Available [facility] ([facility]) [address] [place], [address], 05/26/2024 18:35:45 05/23/20 24 05/26/2024 DRUG SCREE N 13 W/CON F, SERUM tramadol, ia Negati ve NG/mL cutoff :50 This test was frances lindo and its perfo rmanc e suraj cteri stics deter mined by [facility]. It has not been clear ed or appro serene by the Food and Drug Admin istra tion. Not Available [facility] ([facility]) [address] [place], [address], 05/26/2024 18:35:45 05/23/20 24 05/24/2024 LIPID PANEL cholesterol, total 160 mg/dL 100-19 9 normal Not Available [facility] ([facility]) [address] [place], [address], 05/26/2024 18:35:46 05/23/20 24 05/24/2024 LIPID PANEL triglyceride s 135 mg/dL 0-149 normal Not Available [facility] ([facility]) [address] [place], [address], 05/26/2024 18:35:46 05/23/20 24 05/24/2024 LIPID PANEL HDL cholesterol 36 mg/dL >39 below low normal Not Available [facility] ([facility]) [address] [place], [address], 05/26/2024 18:35:46 05/23/20 24 05/24/2024 LIPID PANEL VLDL cholesterol radha 24 mg/dL 5-40 Not Available [facility] ([facility]) [address] [place], [address], 05/26/2024 18:35:46 05/23/20 24 05/24/2024 LIPID PANEL LDL chol calc ([facility]) 100 mg/dL 0-99 above high normal Not Available [facility] ([facility]) [address] [place], [address], 05/26/2024 18:35:46 05/23/20 24 05/24/2024 LIPID PANEL LDL calc comment: BOAT OFFICER Not Available [facility] ([facility]) [address] [facility], [place], [address], 05/26/2024 18:35:46 05/23/20 24 05/24/2024 THYRO ID PANEL WITH TSH TSH 4.430 uIU/m L 0.450- 4.500 normal Not Available [facility] ([facility]) [address] [facility], [place], [address], 05/26/2024 18:35:46 05/23/20 24 05/24/2024 THYRO ID PANEL WITH TSH thyroxine (T4) 9.8 ug/dL 4.5-12 .0 normal Not Available [facility] ([facility]) [address] [facility], [place], [address], 05/26/2024 18:35:46 05/23/20 24 05/24/2024 THYRO ID PANEL WITH TSH T3 uptake 24 % 24-39 normal Not Available [facility] ([facility]) [address] [facility], [place], [address], 05/26/2024 18:35:46 05/23/20 24 05/24/2024 THYRO ID PANEL WITH TSH free thyroxine index 2.4 1.2-4. 9 normal Not Available [facility] ([facility]) [address] [facility], [place], [address], 05/26/2024 18:35:46 05/23/20 24 05/24/2024 VITAM IN B12 AND FOLAT E vitamin B12 320 pg/mL 232-12 45 normal Not Available [facility] ([facility]) [address] [facility], [place], [address], 05/26/2024 18:35:47 05/23/20 24 05/24/2024 VITAM IN B12 AND FOLAT E folate (folic acid), serum 5.5 NG/mL >3.0 normal A serum folat e serenity ntrat ion of less than 3.1 ng/mL is consi dered to repre sent clini radha defic iency . Not Available [facility] ([facility]) [address] [facility], [place], [address], 05/26/2024 18:35:47 05/23/20 24 05/24/2024 HEMOG LOBIN A1C hemoglobin A1C 5.8 % 4.8-5. 6 above high normal Predi abete s: 5.7 - 6.4 Diabe abilio: >6.4 Glyce ada contr ol for adult s with diabe abilio: <7.0 Not Available [facility] ([facility]) [address] [facility], [place], [address], 05/26/2024 18:35:48 05/23/20 24 05/24/2024 VITAM IN D, 25-HY DROXY vitamin D, 25-hydroxy 36.4 NG/mL 30.0-1 00.0 Vitam in D defic iency has been defin ed by the Insti tute of Medic ine and an Endoc rine Socie ty pract ice guide line as a level of serum 25-OH vitam in D less than 20 ng/mL (1,2) . The Endoc rine Socie ty went on to [facility] defin e vitam in D insuf ficie ncy as a level betwe en 21 and 29 ng/mL (2). 1. IOM (Inst itute of Medic ine). 2009. Dieta ry refer ence antony es for calci um and D. Alli mcguire [place]: The Natio nal [employer] [facility] Press . 2. Oli heaton [place], Joceline rodriguez [place], Michelle off-F errar i GUTIERREZ, et al. Evalu ation , treat ment, and preve ntion of vitam in D defic iency : an Endoc rine Socie ty clini radha pract ice guide line. JCEM. 2010; 96(7) :1911 -30. Not Available [facility] ([facility]) [address] [facility], [place], [address], 05/26/2024 18:35:49 05/23/20 24 05/26/2024 GABAP ENTIN (NEUR ONTIN ), SERUM gabapentin, serum 4.3 ug/mL 4.0-16 .0 Detec tion Limit = 1.0 Not Available [facility] ([facility]) [address] [facility], [place], [address], 05/26/2024 18:35:50 09/21/19 25 09/26/2024 COMPL IANCE DRUG LEATHA SIS, UR summary report (summary) FINAL ===== ===== ===== ===== ===== ===== ===== ===== ===== ===== ===== ===== ===== === TOXAS SURE COMP DRUG LEATHA SIS,U R ===== ===== ===== ===== ===== ===== ===== ===== ===== ===== ===== ===== ===== === Test Resul t Flag Units Drug Prese nt Gabap entin PRESE NT Amitr iptyl ine PRESE NT Nortr iptyl ine PRESE NT Nortr iptyl ine may be admin ister ed as a presc ripti on drug; it is also an expec lennie metab olite of amitr iptyl ine. ===== ===== ===== ===== ===== ===== ===== ===== ===== ===== ===== ===== ===== === Test Resul t Flag Units Ref Range Creat inine 90 mg/dL >=20 ===== ===== ===== ===== ===== ===== ===== ===== ===== ===== ===== ===== ===== === Decla red Medic ation s: Medic ation list was not provi ded. ===== ===== ===== ===== ===== ===== ===== ===== ===== ===== ===== ===== ===== === For clini radha consu ltati on, pleas e call . ===== ===== ===== ===== ===== ===== ===== ===== ===== ===== ===== ===== ===== === Not Available [facility] ([facility]) [address] [place], [address], 09/26/2024 20:36:15 09/21/19 25 09/26/2024 COMPL IANCE DRUG LEATHA SIS, UR pdf . Not Available [facility] ([facility]) [address] [place], [address], 09/26/2024 20:36:15 11/23/19 25 11/23/2024 TSH+F REE T4 TSH 5.220 uIU/m L 0.450- 4.500 above high normal Not Available [facility] ([facility]) [address] [place], [address], 11/23/2024 08:37:54 11/23/1911/23/2024 TSH+F REE T4 T4,free(dire ct) 1.38 NG/dL 0.82-1 .77 normal Not Available [facility] ([facility]) [address] [place], [address], 11/23/2024 08:37:54 11/23/19 25 11/23/2024 CBC WITH DIFFE RENTI AL/PL ATELE T WBC 7.8 x10e3 /uL 3.4-10 .8 normal Not Available [facility] ([facility]) [address] [place], [address], 11/23/2024 08:37:55 11/23/19 25 11/23/2024 CBC WITH DIFFE RENTI AL/PL ATELE T RBC 4.50 x10e6 /uL 3.77-5 .28 normal Not Available [facility] ([facility]) [address] [place], [address], 11/23/2024 08:37:55 11/23/19 25 11/23/2024 CBC WITH DIFFE RENTI AL/PL ATELE T hemoglobin 13.2 g/dL 11.1-1 5.9 normal Not Available [facility] ([facility]) [address] [place], [address], 11/23/2024 08:37:55 11/23/19 25 11/23/2024 CBC WITH DIFFE RENTI AL/PL ATELE T hematocrit 41.6 % 34.0-4 6.6 normal Not Available [facility] ([facility]) [address] [place], [address], 11/23/2024 08:37:55 11/23/19 25 11/23/2024 CBC WITH DIFFE RENTI AL/PL ATELE T MCV 92 fL 79-97 normal Not Available [facility] ([facility]) [address] [place], [address], 11/23/2024 08:37:55 11/23/19 25 11/23/2024 CBC WITH DIFFE RENTI AL/PL ATELE T MCH 29.3 pg 26.6-3 3.0 normal Not Available [facility] ([facility]) [address] [place], [address], 11/23/2024 08:37:55 11/23/19 25 11/23/2024 CBC WITH DIFFE RENTI AL/PL ATELE T MCHC 31.7 g/dL 31.5-3 5.7 normal Not Available [facility] ([facility]) [address] [facility], [place], [address], 11/23/2024 08:37:55 11/23/19 25 11/23/2024 CBC WITH DIFFE RENTI AL/PL ATELE T RDW 14.4 % 11.7-1 5.4 Not Available [facility] ([facility]) [address] [facility], [place], [address], 11/23/2024 08:37:55 11/23/19 25 11/23/2024 CBC WITH DIFFE RENTI AL/PL ATELE T platelets 239 x10e3 /uL 150-45 0 normal Not Available [facility] ([facility]) [address] [facility], [place], [address], 11/23/2024 08:37:55 11/23/19 25 11/23/2024 CBC WITH DIFFE RENTI AL/PL ATELE T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 30+ - obesity 720087731 Z68.33 Hyperlipidemia 94296497 E78.5 Compressio n fracture of lumbar spine 997567599 M48.56XD Anxiety 21694808 F41.9 Vitamin D deficiency 347 21481 E55.9 [id number] Zena Wolf APRN [address] [address] 10/14/2020 09:12:45 10/14/2020 13:44:57 Gastroesophageal reflux disease 762310122 K21.9 Neuropathy 815258253 G62 .9 Vitamin deficiency 82897 002 E56.9 Hyperlipidemia 49384653 E78.5 Essential hypertension 64745250 I10 Allergic rhinitis 671230 [address] imulating hormone level above reference range 005856112 R79.89 [id number] Zena Wolf[address] [place] [address] 04/07/2021 10:01:37 04/07/2021 11:06:36 Gastroesophageal reflux disease 696504068 K21.9 Vitamin D deficiency 347 03532 E55.9 Prediabetes 784016751 R7 3.03 Anxiety 55981193 F41.9 Hyperlipidemia 41173838 E78.5 Essential hypertension 78495174 I10 Osteoarthritis 167916993 M19.90 [id number] Rita Driscoll[address] [place] [address] 09/23/2021 10:25:41 09/23/2021 11:02:49 Body mass index 30+ - obesity 666461593 Z68.32 Vitamin deficiency 20620 002 E56.9 Essential hypertension 13872311 I10 Hyperlipidemia 61933280 E78.5 Gastroesop hageal reflux disease 256579073 K21.9 Allergic rhinitis 359024 04 J30.9 Bilateral feet edema 829 597126 R60.0 [id number] Zena Wolf[address] [place] [address] 01/21/2022 13:40:53 01/21/2022 15:32:13 Essential hypertension 61682058 I10 Vitamin deficiency 75414 002 E56.9 Gastroesop hageal reflux disease 473421663 K21.9 Hyperlipidemia 98415689 E78.5 Allergic rhinitis 639652 04 J30.9 Neuropathy 754473708 G62 .9 Long-term drug therapy 605621180 Z79.899 Vitamin D deficiency 347 24389 E55.9 Body mass index 30+ - obesity 902750670 Z68.31 [id number] Zena Wolf[address] [address] 04/22/2022 08:38:34 04/22/2022 09:20:33 Strain of neck muscle 197155575 S16.1XXA [id number] Zena Luciano[address] [place] [address] 07/24/2022 10:31:42 07/24/2022 12:31:36 Adult health examination 962500331 Z00.00 Depression screening 171 223586 Z13.89 Negative screening Examinatio n of blood pressure 178368448 Z01.30 Diet education 13634974 Z71.3 Counseling 052493260 Z71 .82 Exercise counseling . Patient encouraged to exercise 30 minutes 5 days a week. At [facility] risk for falls 347358629 Z91.81 STEADI FAST screening score of ___4__. Advance care planning 71 3144671 Z71.89 Body mass index 30+ - obesity 489055800 Z68.31 Obesity 243789766 E66.9 Long-term drug therapy 659420398 Z79.899 Neuropathy 969609917 G62 .9 Actinic keratosis 684331 007 L57.0 [id number] Zena Luciano[address] [place] [address] 01/12/2023 11:14:16 01/12/2023 12:48:15 Neuropathy 302831742 G62.9 Essential hypertension 90910703 I10 Gastroesop hageal reflux disease 378185821 K21.9 Hyperlipidemia 24841153 E78.5 Allergic rhinitis 277166 04 J30.9 Long-term drug therapy 580370825 Z79.899 Prediabetes 803553926 R7 3.03 Vitamin D deficiency 347 25468 E55.9 [id number] [facility] [address] [place], [place] [address] [place] [address] 07/15/2023 10:52:15 07/15/2023 13:28:58 Osteoarthritis 526584382 M19.90 Long-term drug therapy 690377667 Z79.899 Prediabetes 444755039 R7 3.03 Neuropathy 714341389 G62 .9 Rotator cu ff arthropathy of right shoulder 7290492032 0588941 M25.811 Essential hypertension 61800027 I10 Hyperlipidemia 66066262 E78.5 Gastroesop hageal reflux disease 673647637 K21.9 Vitamin D deficiency 347 16513 E55.9 [id number] Rita Driscoll [address] [place] [address] 09/24/2023 07:48:17 09/24/2023 08:39:11 Dysuria 44793671 R30.0 Microscopic hematuria 19 2504204 R31.29 Furuncle 149471790 L02.9 2 Pruritus of vagina 93482 003 L29.3 [id number] Zena Wolf [address] [place] [address] 11/02/2023 10:32:00 11/02/2023 12:30:10 Adult health examination 143200103 Z00.00 Depression screening 171 201235 Z13.31 A depression screening was completed via a standardiz ed screening tool. 5 minutes were spent discussing depression screening results and risk factors. Examinatio n of blood pressure 137163256 Z01.30 Diet education 03080508 Z71.3 Counseling 031021173 Z71 .82 Exercise counseling . Patient encouraged to exercise 30 minutes 5 days a week. [facility] ed risk for falls 145091584 Z91.81 STEADI FAST screening score of ____6_. Advance care planning 71 1699935 Z71.89 Body mass index 30+ - obesity 247798592 Z68.32 Obesity 416608925 E66.9 Neuropathy 368407845 G62 .9 Peripheral edema 3834091 00 R60.9 [id number] Lindsey García [address] [place] [address] 02/22/2024 09:59:00 02/22/2024 11:01:32 Vitamin D deficiency 77305731 E55.9 Neuropathy 635872116 G62 .9 Anxiety 70951690 F41.9 Hyperlipidemia 63253247 E78.5 Essential hypertension 70990480 I10 Gastroesop hageal reflux disease 214700304 K21.9 Compressio n fracture of lumbar spine 464194149 M48.56XD Prediabetes 622455846 R7 3.03 Body mass index 30+ - obesity 803450643 Z68.32 Obesity 091496842 E66.9 Long-term current use of drug therapy 064477280 Z79.899 Cardiac mu rmur, intensity grade II/ 17846588 R01.1 [id number] Lindsey García [address] [place] [address] 05/23/2024 10:22:21 05/23/2024 11:04:46 Neuropathy 594600510 G62.9 Anxiety 62107690 F41.9 Hyperlipidemia 41780801 E78.5 Essential hypertension 44304617 I10 Vitamin D deficiency 347 22851 E55.9 Osteoarthritis 437923168 M19.90 Prediabetes 588057688 R7 3.03 Long-term current use of drug therapy 568973777 Z79.899 Influenza vaccine needed 8202920840 106 Z23 Body mass index 30+ - obesity 007108146 Z68.31 Obesity 813671239 E66.9 [id number] Lind[place]han García[address] [address] 09/20/2024 15:01:31 09/20/2024 15:34:41 Neuropathy 573175894 G62.9 Vitamin D deficiency 347 70951 E55.9 Body mass index 30+ - obesity 575155777 Z68.31 Obesity 440488379 E66.9 Allergic rhinitis 294916 04 J30.9 Long-term current use of drug therapy 640568364 Z79.704 [id number] [place]han García[address] [place] [address] 11/22/2024 15:01:44 11/22/2024 16:15:48 Neuropathy 327768325 G62.9 Acute cellulitis 1432191 009 L03.90 Acute confusion 11551595 0 R41.0 Essential hypertension 72898820 I10 [id number] Lindsey García APRN [facility] [address] [place] [address] 12/06/2024 15:37:51 12/06/2024 16:12:08 Body mass index 30+ - obesity 132518673 Z68.30 Obesity 105508751 E66.9 Essential hypertension 04961233 I10 not controlled in office Health Concerns Section Related Observation LastModified by Organization Detai ls LastModified Time None Recorded Concern Status LastModified by Organization Details LastModified Time None Recorded Advance Directives Directive None Recorded Payers Insurance Date Sequence Insurance Name Policy Number Policy Estrada Covered Member ID Estrada Member ID Guarantor Name 12/06/2024 2 [facility] (MEDICAID [facility]) Mindy L Ramesh [id number] Mindy L Ramesh 12/06/2024 [employer] [place] [place] Mindy L Ramesh [id number] Mindy L Ramesh 12/06/2024 2 [place] [place] FFS/TRADITIONA L Mindy L Ramesh [id number] Mindy L Rmaesh 12/06/2024 1 [place] HMO[place] [id number] Mindy L Ramesh [id number] Mindy L Ramesh 12/06/2024 1 [employer] (MEDICARE REPLACEMENT/AD VANTAGE - PPO) Mindy L Ramesh [id number] Mindy L Ramesh 12/06/2024 3 [place] Mindy L Ramesh [id number] Mindy L Ramesh 10/14/2016 2 UNSPECIFIED REMIT PAYOR Mindy L Ramesh 12/06/2024 [employer] NATIONAL - MEDIC[facility] (MEDICARE) Mindy L Ramesh [id number] Mindy L Ramesh 12/06/2024 [place] Mindy Gleze [id number] Mindy Dougherty Ramesh 12/06/2024 2 [place] [id number] Mindy Gleze [id number] Mindy Dougherty Ramesh 12/06/2024 2 [facility] (MEDICAID [place]) Mindy Gleze [id number] Mindy Dougherty Ramesh 12/06/2024 2 [place] Mindy Dougherty Ramesh [id number] Mindy Dougherty Ramesh 08/11/2016 1 UNSPECIFIED REMIT PAYOR Mindy Chandler Notes Date Note Type Note Provider Name and Address Organization Details Recorded Time 4 text/html Presents for follow up to neuropathy, HTN, GERDFeeling wellNo chest pain, shortness of breath, dizziness, lightheadedness, syncope, palpitations.Does endorse edema to left ankle by end of day. Typically is resolved by the following morning.No fever, chills or cough.No orthopnea.Does endorse using salt on foodDenies tobacco, alcohol and illicit drug usageCompliant with medications Lindsey García APRN [address], [place], [address], [facility] 02/22/2024 18:19:42 4 text/html Presents for follow up regarding HTN, neuropathy, GERD, prediabetesFeeling wellNo chest pain, shortness of breath, dizziness, lightheadedness, syncope, palpitations or edema. No fever, chills or cough.Compliant with medicationsDenies alcohol, tobacco and illicit drug usage. Lindsey García APRN [address], [place], [address], [facility] 05/23/2024 15:09:46 5 text/html Presents for follow up regarding neuropathy, vit d def, HTN, CAD - s/p LAD PCIFeeling wellNo chest pain, shortness of breath, dizziness, lightheadedness, syncope, palpitations or edema. No fever, chills or cough.Compliant with medicationsDenies alcohol, tobacco and illicit drug usage Lindsey García APRN [address], [place], [address], [place] [facility] 09/20/2024 15:34:29 5 text/html Presents for fall - daughter is presentYesterday was sitting on [...] cough.Compliant with medications Lindsey García APRN [address], [place], [address], [facility] 11/26/2024 21:01:07 5 text/html Presents for follow up regarding recent cellulitisFeeling much betterNo chest pain, shortness of breath, dizziness, lightheadedness, syncope, palpitation.Does endorse some swelling to ankles by end of day that is resolved by the following morningNo fever, chills or cough.Compliant with medicationDenies alcohol, tobacco and illicit drug usage Lindsey García APRN [address], [place], [address], [facility] 12/06/2024 16:07:05 OBGyn Episode No OBEpisode recorded.
[2024-12-30 14:37] LABS: Alanine Aminotransferase 32 U/L (12-78); Albumin Level 3.9 g/dl (3.5-5.0); Albumin/Globulin Ratio 1.6 (1.1-1.8); Alkaline Phosphatase 89 U/L (38-126); Anion Gap 9.6 mEq/L (5-15); Aspartate Amino Transferase 59 U/L (14-36); Bilirubin,Total 0.6 mg/dl (0.2-1.3); Blood Urea Nitrogen 19 mg/dl (7-17); Calcium 8.9 mg/dl (8.4-10.2); Carbon Dioxide 28 mmol/L (22.0-30.0); Chloride 106 mmol/L (98-107); Creatinine Clearance Estimated 60 mL/min (50-200); Creatinine,Serum 0.80 mg/dl (0.52-1.04); Estimated Glomerular Filt Rate 69 ml/min (>60); GFR (African American) 83 ML/MIN (>60); Globulin 2.4 g/dL (1.3-3.2); Glucose 103 mg/dl (74-100); Potassium 3.6 mmoL/L (3.5-5.1); Sodium 140 mmol/L (136-145); Total Protein,Serum 6.3 g/dl (6.3-8.2)
[2024-12-30 15:00] VITALS: BP 188/63; PULSE 87; RESP 19; O2SAT 91
--- NOTE | 2024-12-30 15:12 | PC.NURSE ---
KWAME VILLALPANDO PA-C SPEAKING WITH [facility]
--- NOTE | 2024-12-30 15:17 | PC.NURSE ---
[facility] contacted at this time for transfer
--- NOTE | 2024-12-30 15:23 | PC.NURSE ---
IRASEMA SPEAKING WITH [facility]
[2024-12-30 15:30] VITALS: BP 212/69; PULSE 91; RESP 26; O2SAT 95
[2024-12-30 15:38] VITALS: BP 182/66; PULSE 95; RESP 25; O2SAT 94
[2024-12-30 15:44] LABS: Hepatitis C Ab Qual. W/ RFX NEGATIVE (Negative)
[2024-12-30 15:45] VITALS: BP 182/66; PULSE 90; RESP 18; TEMP 36.8; O2SAT 95
[2024-12-30 16:24] LABS: Microscopic,Cath URINE MICROSCOPIC (MICROSCOPIC)
[2024-12-30 16:25] LABS: Appearance,Urine/Cath CLEAR (Clear); Bilirubin,Cath Negative (Negative); Blood, Urine/Cath Negative (Negative); Color,Urine/Cath YELLOW (Yellow); Glucose,Urine/Cath (UA) Negative (Negative); Ketones,Urine/Cath Negative (Negative); Leukocyte Esterase,Cath Negative (Negative); Nitrate,Cath Negative (Negative); PH,Urine/Cath 5.5 (5.0-8.5); Protein,Urine/Cath Negative (Negative); Specific Gravity, Urine/Cath 1.020 (1.005-1.030); Urobilinogen,Cath 0.2 EU/dl (0.2)
[2024-12-30 16:56] LABS: RBC,Urine/Cath Occasional # /hpf (0-3); WBC,Urine/Cath Occasional #/hpf (0-3)
[2024-12-30 16:57] LABS: Bacteria,Urine/Cath 1+ /lpf; Mucus,Urine/Cath 4+ /lpf
== END 2024-12-30 15:45 | disposition short-term general hospital (02) ==
PROVIDERS: Physician Assistant; Emergency Provider Student in an Organized Health Care Education/Training Program
DX: S06.6X0A Traumatic subarachnoid hemorrhage without loss of consciousness, initial encounter (principal); S72.042A Displaced fracture of base of neck of left femur, initial encounter for closed fracture; W10.1XXA Fall (on)(from) sidewalk curb, initial encounter
CPT/HCPCS: 51702; 70450; 71045; 72125; 72170; 73060; 73070; 73552; 80053; 81001; 85025; 86803; 87389; 93005; 99291